=== PATIENT | female | born 1945 | race Two or more races ===

== ENCOUNTER 2020-05-24 09:23 | Outpatient (REF) | payer MEDICARE, SELFPAY ==
--- NOTE | 2020-05-24 | US_ITS ---
EXAMINATION: US EXTRACRANIAL CAROTID DUPLEX, BILATERAL CLINICAL INFORMATION: Bilateral carotid artery stenosis COMPARISON: Neck CTA October 2008 and carotid ultrasound September 2019 TECHNIQUE: Real-time ultrasound and Doppler techniques (integrating B-mode 2-D vascular images, Doppler spectral analysis and color-flow Doppler imaging) were utilized to interrogate the extracranial carotid arteries, the vertebral arteries and proximal subclavian arteries bilaterally. The degree of stenosis is determined by criteria similar to NASCET. FINDINGS: Right Side: 1. There is significant atherosclerotic plaque seen in the bifurcation/proximal ICA region. 2. The common carotid artery PSV proximally is 80 cm/s and distally 60 cm/s. 3. The proximal internal carotid artery velocities are 120 cm/s systolic and 28 cm/s diastolic. 4. The proximal external carotid artery PSV is 600 cm/s. 5. The vertebral artery shows antegrade flow. 6. The subclavian artery waveforms are normal. Left Side: 1. There is significant atherosclerotic plaque seen in the bifurcation/proximal ICA region. 2. The common carotid artery PSV proximally is 72 cm/s and distally 91 cm/s. 3. The proximal internal carotid artery velocities are 238 cm/s systolic and 54 cm/s diastolic. 4. The proximal external carotid artery PSV is 120 cm/s. 5. The vertebral artery shows antegrade flow. 6. The subclavian artery waveforms demonstrate increased activity systolic velocity of 225 cm/s suggestive of left subclavian stenosis.. There is right cervical lymphadenopathy that does not appear changed. IMPRESSION: 1. RIGHT: Significant calcified plaque. 0-49% right ICA stenosis. Severe right ECA stenosis. 2. LEFT: Significant calcified plaque. 50-79% left ICA stenosis. Left subclavian stenosis. 3. There is no change in the category severity of disease on the left when compared to the previous ultrasound study dated September 2019. There is change in the category severity of disease on the right when compared with previous ultrasound study dated September 2019. There is a no significant change compared to previous neck CTA October 2019 bilaterally.
== END 2020-05-24 09:24 | disposition home or self-care (01) ==
LOC: HO.US 09:23
PROVIDERS: Visit Provider Surgery Vascular Surgery
DX: I65.23 Occlusion and stenosis of bilateral carotid arteries (principal)
CPT/HCPCS: 93880

== ENCOUNTER → 2020-06-03 08:42 | Outpatient (BNVA) | payer MEDICARE, SELFPAY | PROVIDERS: PCP Internal Medicine; Visit Provider Surgery Vascular Surgery | DX: I65.22 Occlusion and stenosis of left carotid artery (principal) | CPT/HCPCS: 99213 ==

== ENCOUNTER → 2020-06-21 10:32 | Outpatient (BNVA) | payer MEDICARE, SELFPAY | PROVIDERS: PCP Internal Medicine; Referring Provider Internal Medicine; Visit Provider Internal Medicine | DX: I25.10 Atherosclerotic heart disease of native coronary artery without angina pectoris (principal); I65.23 Occlusion and stenosis of bilateral carotid arteries; D75.0 Familial erythrocytosis; E78.5 Hyperlipidemia, unspecified; Z95.5 Presence of coronary angioplasty implant and graft; Z88.0 Allergy status to penicillin; Z88.8 Allergy status to other drugs, medicaments and biological substances; Z79.82 Long term (current) use of aspirin; Z79.899 Other long term (current) drug therapy | CPT/HCPCS: 99212 ==

== ENCOUNTER → 2020-12-27 09:57 | Outpatient (BNVA) | payer MEDICARE, SELFPAY | PROVIDERS: PCP Internal Medicine; Visit Provider Internal Medicine | DX: I25.10 Atherosclerotic heart disease of native coronary artery without angina pectoris (principal); I10 Essential (primary) hypertension; I65.23 Occlusion and stenosis of bilateral carotid arteries; E78.5 Hyperlipidemia, unspecified; Z95.5 Presence of coronary angioplasty implant and graft | CPT/HCPCS: Q3014 ==

== ENCOUNTER 2021-05-22 13:51 | Outpatient (REF) | payer MEDICARE, SELFPAY ==
--- NOTE | ~2021-05-22 | US_ITS ---
EXAMINATION: US EXTRACRANIAL CAROTID DUPLEX, BILATERAL CLINICAL INFORMATION: Carotid artery stenosis. COMPARISON: Carotid ultrasound 05/24/2020. TECHNIQUE: Real-time ultrasound and Doppler techniques (integrating B-mode 2-D vascular images, Doppler spectral analysis and color-flow Doppler imaging) were utilized to interrogate the extracranial carotid arteries, the vertebral arteries and proximal subclavian arteries bilaterally. The degree of stenosis is determined by criteria similar to NASCET. FINDINGS: Right Side: 1. There is moderate atherosclerotic plaque seen in the bifurcation/proximal ICA region. 2. The common carotid artery PSV proximally is 74 cm/s and distally 56 cm/s. 3. The proximal internal carotid artery velocities are 136 cm/s systolic and 37 cm/s diastolic. 4. The proximal external carotid artery PSV is 398 cm/s. 5. The vertebral artery shows antegrade flow. 6. The subclavian artery waveforms are normal. Left Side: 1. There is moderate atherosclerotic plaque seen in the bifurcation/proximal ICA region. 2. The common carotid artery PSV proximally is 66 cm/s and distally 48 cm/s. 3. The proximal internal carotid artery velocities are 195 cm/s systolic and 56 cm/s diastolic. 4. The proximal external carotid artery PSV is 94 cm/s. 5. The vertebral artery shows antegrade flow. 6. The subclavian artery waveforms are normal. US/US carotid duplex BI IMPRESSION: 1. RIGHT: Moderate, hemodynamically significant stenosis of the proximal right internal carotid artery corresponding to a 50-79% stenosis by velocity criteria. 2. LEFT: Moderate, hemodynamically significant stenosis of the proximal left internal carotid artery corresponding to a 50-79% stenosis by velocity criteria. 3. Progression of disease from mild less than 50% stenosis to 50-79% stenosis on the right and stable disease on the left that 50-79% stenosis compared to 05/24/2020.
== END 2021-05-22 13:52 | disposition home or self-care (01) ==
LOC: HO.US 13:51
PROVIDERS: Visit Provider Surgery Vascular Surgery
DX: I65.23 Occlusion and stenosis of bilateral carotid arteries (principal)
CPT/HCPCS: 93880

== ENCOUNTER → 2021-06-01 14:34 | Outpatient (BNVA) | payer MEDICARE, SELFPAY | PROVIDERS: PCP Internal Medicine; Visit Provider Internal Medicine Cardiovascular Disease | DX: I25.10 Atherosclerotic heart disease of native coronary artery without angina pectoris (principal); I65.22 Occlusion and stenosis of left carotid artery | CPT/HCPCS: 99202 ==

== ENCOUNTER → 2021-06-13 13:41 | Outpatient (BNVA) | payer MEDICARE, SELFPAY | PROVIDERS: PCP Internal Medicine; Visit Provider Surgery Vascular Surgery | DX: I65.22 Occlusion and stenosis of left carotid artery (principal) | CPT/HCPCS: 99212 ==

== ENCOUNTER 2021-11-20 07:30 | Day surgery (SDC) | payer MEDICARE, SELFPAY ==
[2021-11-14 14:44] VITALS: BMI 30.1
--- NOTE | 2021-11-16 14:24 | MHC.SHP ---
Pre-Procedural Eval Section A Date of Service: 11/16/21 The patient is an INPATIENT: No Changes since office visit: No Cold of Flu in the past 2 weeks, No New Medical Problems, No Changes in Medication and No Patient answered all questions The History & Physical has been completed within 30 days and I have reviewed it.: Yes Section B Chief Complaint: Age-related nuclear cataract, right eye Allergies: Allergies Allergy/AdvReac Type Severity Reaction Status Date / Time ibuprofen [IBUPROFEN] Allergy Mild Nausea and Verified 11/16/21 08:23 Vomiting, Dizzy atorvastatin Allergy Unknown Diarrhea Verified 11/16/21 08:22 duloxetine Allergy Unknown Unknown Verified 11/14/21 14:40 meperidine [Demerol] Allergy Unknown Nausea and Verified 11/16/21 08:22 Vomiting penicillin V Allergy Unknown Does not Verified 11/16/21 08:22 work for her prednisone Allergy Unknown Rash Verified 11/16/21 08:22 Influenza Vac Split Quad Allergy Unknown Rash Uncoded 11/16/21 08:22 Levothroid Allergy Unknown chest Uncoded 11/16/21 08:23 pain, nausea, SOB MEDICATION FOR ARTHRITIS AdvReac Severe DIZZINESS Uncoded 06/13/21 13:50 Plan Diagnosis/Plan: Unchanged I have reviewed the history and physical and performed a pertinent physical examination on my patient. No changes have occurred unless specified.
--- NOTE | 2021-11-17 10:38 | P.CONAN_ITS ---
Documented by User: Cynthia Briceno NP 11/17/21 10:40 HPI - Anesthesia Eval Consult details Narrative: 75yo F for Right Cataract Extraction IOL Insertion PCP cleared No previous cataract on record [facility] Active Problems Active Problems: All Active Problems (Updated 11/16/21 @ 08:17 by Deidre Seymour, RN) Angina pectoris (Acute) Essential hypertension (Acute) Bilateral carotid artery stenosis (Acute) Other and unspecified hyperlipidemia (Acute) Presence of stent in left circumflex coronary artery (Acute) Atherosclerotic cardiovascular disease (Acute) Carotid stenosis, left (Acute) Past Medical History Medical History (Updated 11/16/21 @ 08:17 by Deidre Seymour, RN) Anxiety Asthma Atherosclerotic cardiovascular disease Bilateral carotid artery stenosis Carotid stenosis, left CKD (chronic kidney disease), stage IV Elevated cholesterol Essential hypertension Fibromyalgia Hypothyroid On beta [place] at home Osteoarthritis of lumbar spine Osteoporosis Other and unspecified hyperlipidemia Presence of stent in left circumflex coronary artery Type 2 diabetes mellitus Family History Family History Father No problems noted. Mother No problems noted. Surgical History Surgical History (Updated 11/16/21 @ 08:18 by Deidre Seymour RN) H/O section History of cardiac cath History of lumbar laminectomy Hx of cholecystectomy Social History Social History Are you a primary lawn care worker to a significant other at home: No Do you presently have visiting nurse or other home services: Yes (Homecare Services) Alcohol intake: never Patient Tobacco Use Status: Never used Tobacco Second Hand Smoke Exposure: No Use of substances other than those prescribed or required for medical reasons: No Have you been hit, kicked, punched, or otherwise hurt by someone within the past year? If so, by whom?: No Are you DNR?: No Advance Directives: No Advance Directives Information Provided: No Advance Directives on File: No Recently lost weight without trying: No Eating poorly because of decreased appetite: No Nutrition Risks: No Nutritional Risk Patient : No Meds Allergies Allergy/AdvReac Type Severity Reaction Status Date / Time ibuprofen [IBUPROFEN] Allergy Mild Nausea and Verified 11/16/21 08:23 Vomiting, Dizzy atorvastatin Allergy Unknown Diarrhea Verified 11/16/21 08:22 duloxetine Allergy Unknown Unknown Verified 11/14/21 14:40 meperidine [Demerol] Allergy Unknown Nausea and Verified 11/16/21 08:22 Vomiting penicillin V Allergy Unknown Does not Verified 11/16/21 08:22 work for her prednisone Allergy Unknown Rash Verified 11/16/21 08:22 Influenza Vac Split Quad Allergy Unknown Rash Uncoded 11/16/21 08:22 Levothroid Allergy Unknown chest Uncoded 11/16/21 08:23 pain, nausea, SOB MEDICATION FOR ARTHRITIS AdvReac Severe DIZZINESS Uncoded 06/13/21 13:50 Home Medications Medication Instructions Recorded Confirmed Last Taken Type albuterol sulfate 90 mcg/actuation INHALATION 06/03/20 06/01/21 Unknown History aerosol inhaler chlorthalidone 50 mg tablet 50 mg PO DAILY 06/03/20 11/14/21 Unknown History levothyroxine 50 mcg tablet 50 mcg PO DAILY 06/03/20 11/14/21 Unknown History metoprolol succinate 50 mg 50 mg PO DAILY 06/03/20 11/14/21 Unknown History tablet,extended release 24 hr omeprazole 20 mg capsule,delayed 20 mg PO DAILY 06/03/20 11/14/21 Unknown History release alprazolam 0.25 mg tablet 0.25 mg PO BEDTIME PRN 06/21/20 11/14/21 Unknown Histo ry aspirin 81 mg tablet,delayed 81 mg PO DAILY 06/21/20 11/14/21 Unknown History release amlodipine 5 mg tablet 1 tab PO DAILY 11/14/21 11/14/21 Unknown History empagliflozin 10 mg tablet 1 tab PO DAILY 11/14/21 11/14/21 Unknown History (Jardiance) fluticasone propionate 110 2 puff INHALATION BID 11/14/21 11/14/21 Unknown History mcg/actuation HFA aerosol inhaler (Flovent HFA) Exam Exam Date and Time: November 17, 2021 1038 Height,Weight and Vital Signs: Height 5 ft 3 in Weight 77.111 kg Narrative Narrative: EKG 11/15/21 NSR @ 69 borderline low volt Assessment and Plan Assessment Anesthesia Assessment: Chart Reviewed Documented by User: Adan Shin MD 11/20/21 08:59 [facility] Past Medical History Medical History (Updated 11/16/21 @ 08:17 by Deidre Seymour, RN) Anxiety Asthma Atherosclerotic cardiovascular disease Bilateral carotid artery stenosis Carotid stenosis, left CKD (chronic kidney disease), stage IV Elevated cholesterol Essential hypertension Fibromyalgia Hypothyroid On beta [place] at home Osteoarthritis of lumbar spine Osteoporosis Other and unspecified hyperlipidemia Presence of stent in left circumflex coronary artery Type 2 diabetes mellitus Family History Family History Father No problems noted. Mother No problems noted. Family history of problems with anesthesia: No Surgical History Surgical History (Updated 11/16/21 @ 08:18 by Deidre Seymour, RN) H/O section History of cardiac cath History of lumbar laminectomy Hx of cholecystectomy History of Problems with Anesthesia: No Social History Social History Are you a primary lawn care worker to a significant other at home: No Do you presently have visiting nurse or other home services: Yes (Homecare Services) Alcohol intake: never Patient Tobacco Use Status: Never used Tobacco Second Hand Smoke Exposure: No Use of substances other than those prescribed or required for medical reasons: No Have you been hit, kicked, punched, or otherwise hurt by someone within the past year? If so, by whom?: No Are you DNR?: No Advance Directives: No Advance Directives Information Provided: No Advance Directives on File: No Recently lost weight without trying: No Eating poorly because of decreased appetite: No Nutrition Risks: No Nutritional Risk Patient : No Meds Allergies Allergy/AdvReac Type Severity Reaction Status Date / Time ibuprofen [IBUPROFEN] Allergy Mild Nausea and Verified 11/16/21 08:23 Vomiting, Dizzy atorvastatin Allergy Unknown Diarrhea Verified 11/16/21 08:22 duloxetine Allergy Unknown Unknown Verified 11/14/21 14:40 meperidine [Demerol] Allergy Unknown Nausea and Verified 11/16/21 08:22 Vomiting penicillin V Allergy Unknown Does not Verified 11/16/21 08:22 work for her prednisone Allergy Unknown Rash Verified 11/16/21 08:22 Influenza Vac Split Quad Allergy Unknown Rash Uncoded 11/16/21 08:22 Levothroid Allergy Unknown chest Uncoded 11/16/21 08:23 pain, nausea, SOB MEDICATION FOR ARTHRITIS AdvReac Severe DIZZINESS Uncoded 06/13/21 13:50 Home Medications Medication Instructions Recorded Confirmed Last Taken Type albuterol sulfate 90 mcg/actuation INHALATION 06/03/20 06/01/21 Unknown History aerosol inhaler chlorthalidone 50 mg tablet 50 mg PO DAILY 06/03/20 11/14/21 Unknown History levothyroxine 50 mcg tablet 50 mcg PO DAILY 06/03/20 11/14/21 Unknown History metoprolol succinate 50 mg 50 mg PO DAILY 06/03/20 11/14/21 Unknown History tablet,extended release 24 hr omeprazole 20 mg capsule,delayed 20 mg PO DAILY 06/03/20 11/14/21 Unknown History release alprazolam 0.25 mg tablet 0.25 mg PO BEDTIME PRN 06/21/20 11/14/21 Unknown History aspirin 81 mg tablet,delayed 81 mg PO DAILY 06/21/20 11/14/21 Unknown History release amlodipine 5 mg tablet 1 tab PO DAILY 11/14/21 11/14/21 Unknown History empagliflozin 10 mg tablet 1 tab PO DAILY 11/14/21 11/14/21 Unknown History (Jardiance) fluticasone propionate 110 2 puff INHALATION BID 11/14/21 11/14/21 Unknown History mcg/actuation HFA aerosol inhaler (Flovent HFA) Exam Airway Mallampati Class: II TM Dist: >3cm Neck ROM: Full Denture: Upper and Lower Loose/Missing/Broken Teeth: Yes Heart: [id number] Lungs: cta b/l Assessment and Plan Assessment Anesthesia Assessment: Anesthesia Plan Discussed Final Anesthetic Review Family History of Problems with Anesthesia: No History of Problems with Anesthesia: No NPO: Yes ASA Class: III Final Preanesthetic Review: No Changes in Pt Med Stat, Meds/Allgs Chart Reviewed, Consent Obtained/Reviewed and Anes Risks/Benef Reviewed Patient Risk: Intermediate Procedure Risk: Low Assessment/Block/Sedation in SS: Assess/Block/Sedation-SS Anesthetic Plan Anesthetic Plan: MAC: and Agree w/ Assess. and Plan Disposition: Standard PACU
[2021-11-20 08:38] VITALS: BP 128/72; PULSE 67; RESP 16; TEMP 36.6; O2SAT 96
[2021-11-20 08:40] LABS: Glucose, Whole Blood 99 mg/dL (60-115)
[2021-11-20] MEDS: Tetracaine HCl/PF 0.5% Oph Sol 4 ML DROPS 1 DROP EYE-RIGHT (08:44)
[2021-11-20] MEDS: Tropicamide 1 % Ophth Sol 3 ML BTL 1 DROP EYE-RIGHT ×3 (08:47→08:54)
[2021-11-20] MEDS: Phenylephrine HCL 2.5% Oph SoL 2 ML BOTTLE 1 DROP EYE-RIGHT ×3 (08:49→08:56)
[2021-11-20] MEDS: Lactated Ringers 500 ML 50 ML IV (08:57)
--- NOTE | 2021-11-20 09:49 | HO.PNOPHT ---
Ophthalmology Procedure Procedure Date of Service: 11/20/21 Ophthalmology Viscoelastic: Healon Duet Dual Pack Pro Ophthalmology Lenses: SENSAR AR40 (AR40M 1) Procedure Notes: PREOPERATIVE DIAGNOSIS: Decreased visual acuity right eye secondary to cataract POSTOPERATIVE DIAGNOSIS: Same PROCEDURE: Right cataract extraction with intraocular lens insertion SURGEON: Norm Lobo M.D. ANESTHESIA: Topical/MAC ESTIMATED BLOOD LOSS: None COMPLICATIONS: None After obtaining informed consent, the patient was brought to the operating room suite and placed in the supine position. After adequate sedation per anesthesia, topical drops of Tetracaine were given to the right eye. The eye was then prepped and draped in the usual sterile fashion. The operating room microscope was then positioned over the operative eye and a lid speculum placed. A paracentesis was created. Viscoelastic was then instilled into the anterior chamber. A three plane incision was then created temporally, utilizing a 2.85 mm keratome. Capsulotomy forceps were then utilized to create a circular tear capsulotomy. Hydrodissection and hydrodelineation were carried out until adequate mobilization of the nucleus occurred. Phacoemulsification was then utilized to remove the dense central nucleus followed by removal of the cortical material utilizing the automated aspiration irrigation unit. Viscoelastic was instilled into the posterior capsular bag followed by placement of a posterior chamber intraocular lens without difficulty. The residual Viscoelastic was then removed utilizing the automated IA machine. The wound was checked and found to be watertight. The patient tolerated the procedure well and the lid speculum was removed. Intracameral injection of Vigamox 0.1 mL followed by a subtenon injection of Kenalog-40 0.2 mL were administered. The patient will be seen in the a.m.
[2021-11-20] MEDS: Acetaminophen 325 MG TABLET 650 MG PO (10:17)
[2021-11-20 10:18] VITALS: BP 142/69; PULSE 71; RESP 18; TEMP 36.2; O2SAT 97
== END 2021-11-20 10:20 ==
LOC: HO.SSS 07:31
PROVIDERS: PCP Internal Medicine; Visit Provider Ophthalmology
PROC: (CPT 66985; principal; 2021-11-20 10:00)
DX: H25.11 Age-related nuclear cataract, right eye (principal); H52.4 Presbyopia; H53.001 Unspecified amblyopia, right eye; H35.09 Other intraretinal microvascular abnormalities; E11.59 Type 2 diabetes mellitus with other circulatory complications; E11.22 Type 2 diabetes mellitus with diabetic chronic kidney disease; I12.9 Hypertensive chronic kidney disease with stage 1 through stage 4 chronic kidney disease, or unspecified chronic kidney disease; N18.4 Chronic kidney disease, stage 4 (severe); Z79.84 Long term (current) use of oral hypoglycemic drugs; E03.9 Hypothyroidism, unspecified; M79.7 Fibromyalgia; M81.0 Age-related osteoporosis without current pathological fracture; E78.00 Pure hypercholesterolemia, unspecified; J45.20 Mild intermittent asthma, uncomplicated; Z79.51 Long term (current) use of inhaled steroids; Z79.899 Other long term (current) drug therapy; Z88.0 Allergy status to penicillin; Z88.8 Allergy status to other drugs, medicaments and biological substances
CPT/HCPCS: 66984; 82947; J2250; J3010; J3300; V2632

== ENCOUNTER → 2021-11-30 14:05 | Outpatient (BNVA) | payer MEDICARE, SELFPAY | PROVIDERS: PCP Internal Medicine; Referring Provider Internal Medicine; Visit Provider Internal Medicine Cardiovascular Disease | DX: I10 Essential (primary) hypertension (principal); I25.10 Atherosclerotic heart disease of native coronary artery without angina pectoris; I65.23 Occlusion and stenosis of bilateral carotid arteries; Z79.899 Other long term (current) drug therapy | CPT/HCPCS: 93005; 99212 ==

== ENCOUNTER 2021-12-11 06:50 | Day surgery (SDC) | payer MEDICARE, SELFPAY ==
[2021-11-14 14:55] VITALS: BMI 30.1
--- NOTE | 2021-12-08 07:57 | MHC.SHP ---
Pre-Procedural Eval Section A Date of Service: 12/08/21 The patient is an INPATIENT: No Changes since office visit: No Cold of Flu in the past 2 weeks, No New Medical Problems, No Changes in Medication and No Patient answered all questions The History & Physical has been completed within 30 days and I have reviewed it.: Yes Section B Chief Complaint: Age-related nuclear cataract, left eye Allergies: Allergies Allergy/AdvReac Type Severity Reaction Status Date / Time ibuprofen [IBUPROFEN] Allergy Mild Nausea and Verified 11/30/21 14:08 Vomiting, Dizzy atorvastatin Allergy Unknown Diarrhea Verified 11/30/21 14:08 duloxetine Allergy Unknown Unknown Verified 11/30/21 14:08 meperidine [Demerol] Allergy Unknown Nausea and Verified 11/30/21 14:08 Vomiting penicillin V Allergy Unknown Does not Verified 11/30/21 14:08 work for her prednisone Allergy Unknown Rash Verified 11/30/21 14:08 Influenza Vac Split Quad Allergy Unknown Rash Uncoded 11/30/21 14:08 Levothroid Allergy Unknown chest Uncoded 11/30/21 14:08 pain, nausea, SOB MEDICATION FOR ARTHRITIS AdvReac Severe DIZZINESS Uncoded 11/30/21 14:08 Plan Diagnosis/Plan: Unchanged I have reviewed the history and physical and performed a pertinent physical examination on my patient. No changes have occurred unless specified.
[2021-12-11 07:59] LABS: Glucose, Whole Blood 118 mg/dL (60-115)
--- NOTE | 2021-12-11 08:03 | HO.ANESPROP2 ---
HPI - Anesthesia Eval Consult details Narrative: left eye cataract PMFSH Active Problems Active Problems: All Active Problems (Updated 11/16/21 @ 08:17 by Deidre Seymour RN) Angina pectoris (Acute) Essential hypertension (Acute) Bilateral carotid artery stenosis (Acute) Other and unspecified hyperlipidemia (Acute) Presence of stent in left circumflex coronary artery (Acute) Atherosclerotic cardiovascular disease (Acute) Carotid stenosis, left (Acute) Past Medical History Medical History (Updated 11/16/21 @ 08:17 by Deidre Seymour RN) Anxiety Asthma Atherosclerotic cardiovascular disease Bilateral carotid artery stenosis Carotid stenosis, left CKD (chronic kidney disease), stage IV Elevated cholesterol Essential hypertension Fibromyalgia Hypothyroid On beta [place] at home Osteoarthritis of lumbar spine Osteoporosis Other and unspecified hyperlipidemia Presence of stent in left circumflex coronary artery Type 2 diabetes mellitus Family History Family History Father No problems noted. Mother No problems noted. Family history of problems with anesthesia: No Surgical History Surgical History H/O section History of cardiac cath History of lumbar laminectomy Hx of cholecystectomy History of Problems with Anesthesia: No Social History Social History Are you a primary career technical supervisor to a significant other at home: No Do you presently have visiting nurse or other home services: Yes (Homecare Services) Alcohol intake: never Patient Tobacco Use Status: Never used Tobacco Second Hand Smoke Exposure: No Use of substances other than those prescribed or required for medical reasons: No Have you been hit, kicked, punched, or otherwise hurt by someone within the past year? If so, by whom?: No Are you DNR?: No Advance Directives: No Advance Directives Information Provided: Yes Advance Directives on File: No Recently lost weight without trying: No Eating poorly because of decreased appetite: No Nutrition Risks: No Nutritional Risk Patient : No Meds Allergies Allergy/AdvReac Type Severity Reaction Status Date / Time ibuprofen [IBUPROFEN] Allergy Mild Nausea and Verified 11/30/21 14:08 Vomiting, Dizzy atorvastatin Allergy Unknown Diarrhea Verified 11/30/21 14:08 duloxetine Allergy Unknown Unknown Verified 11/30/21 14:08 meperidine [Demerol] Allergy Unknown Nausea and Verified 11/30/21 14:08 Vomiting penicillin V Allergy Unknown Does not Verified 11/30/21 14:08 work for her prednisone Allergy Unknown Rash Verified 11/30/21 14:08 Influenza Vac Split Quad Allergy Unknown Rash Uncoded 11/30/21 14:08 Levothroid Allergy Unknown chest Uncoded 11/30/21 14:08 pain, nausea, SOB MEDICATION FOR ARTHRITIS AdvReac Severe DIZZINESS Uncoded 11/30/21 14:08 Active Medications: Current Medications Lactated Ringer's (Lr) 500 mls @ 50 mls/hr IVCONT .Q10H CIELO Povidone Iodine (Povidone Iodine 5 % Ophth Soln 30 Ml Bottle) 1 appl EYE-LEFT PREOP PRN PRN Reason: Pre-Op Surgical Implant Prophy Home Medications Medication Instructions Recorded Confirmed Last Taken Type albuterol sulfate 90 mcg/actuation INHALATION 06/03/20 11/30/21 Unknown History aerosol inhaler chlorthalidone 50 mg tablet 50 mg PO DAILY 06/03/20 11/30/21 Unknown History levothyroxine 50 mcg tablet 50 mcg PO DAILY 06/03/20 11/30/21 Unknown History metoprolol succinate 50 mg 50 mg PO DAILY 06/03/20 11/30/21 Unknown History tablet,extended release 24 hr omeprazole 20 mg capsule,delayed 20 mg PO DAILY 06/03/20 11/30/21 Unknown History release alprazolam 0.25 mg tablet 0.25 mg PO BEDTIME PRN 06/21/20 11/30/21 Unknown History aspirin 81 mg tablet,delayed 81 mg PO DAILY 06/21/20 11/30/21 Unknown History release empagliflozin 10 mg tablet 1 tab PO DAILY 11/14/21 11/30/21 Unknown History (Jardiance) fluticasone propionate 110 2 puff INHALATION BID 11/14/21 11/30/21 Unknown History mcg/actuation HFA aerosol inhaler (Flovent HFA) Exam Exam Date and Time: December 11, 2021 0803 Height,Weight and Vital Signs: Height 5 ft 3 in Weight 77.111 kg Pertinent Lab Results Pertinent Lab Results: Laboratory Tests 12/11/21 07:55 POC Glucose 118 H Airway Mallampati Class: II TM Dist: >3cm Neck ROM: Full Denture: Upper and Lower Loose/Missing/Broken Teeth: Yes Heart: rrr+s1s2 Lungs: cta b/l Assessment and Plan Final Anesthetic Review Family History of Problems with Anesthesia: No History of Problems with Anesthesia: No NPO: Yes ASA Class: III Final Preanesthetic Review: No Changes in Pt Med Stat, Meds/Allgs Chart Reviewed, Consent Obtained/Reviewed and Anes Risks/Benef Reviewed Patient Risk: Intermediate Procedure Risk: Low Assessment/Block/Sedation in SS: Assess/Block/Sedation-SS Anesthetic Plan Anesthetic Plan: MAC: and Agree w/ Assess. and Plan Disposition: Standard PACU
[2021-12-11] MEDS: Tetracaine HCl/PF 0.5% Oph Sol 4 ML DROPS 1 DROP EYE-LEFT (08:12)
[2021-12-11] MEDS: Tropicamide 1 % Ophth Sol 3 ML BTL 1 DROP EYE-LEFT ×3 (08:12→08:20)
[2021-12-11] MEDS: Phenylephrine HCL 2.5% Oph SoL 2 ML BOTTLE 1 DROP EYE-LEFT ×3 (08:13→08:21)
--- NOTE | 2021-12-11 08:35 | HO.PNOPHT ---
Ophthalmology Procedure Procedure Date of Service: 12/11/21 Ophthalmology Viscoelastic: Healdavid Bellot Dual Pack Pro Ophthalmology Lenses: TECBENEDICT [id number] (22) Procedure Notes: PREOPERATIVE DIAGNOSIS: Decreased visual acuity left eye secondary to cataract POSTOPERATIVE DIAGNOSIS: Same PROCEDURE: Left cataract extraction with intraocular lens insertion SURGEON: Norm Lobo M.D. ANESTHESIA: Topical/MAC ESTIMATED BLOOD LOSS: None COMPLICATIONS: None After obtaining informed consent, the patient was brought to the operation room suite and placed in the supine position. After adequate sedation per anesthesia, topical drops of Tetracaine were given to the left eye. The eye was then prepped and draped in the usual sterile fashion. The operating room microscope was then positioned over the operative eye and a lid speculum placed. A paracentesis was created. Viscoelastic was then instilled into the anterior chamber. A three plane incision was then created temporally, utilizing a 2.85 mm keratome. Capsulotomy forceps were then utilized to create a circular tear capsulotomy. Hydrodissection and hydrodelineation were carried out until adequate mobilization of the nucleus occurred. Phacoemulsification was then utilized to remove the dense central nucleus followed by removal of the cortical material utilizing the automated aspiration irrigation unit. Viscoat elastic was instilled into the posterior capsular bag followed by placement of a posterior chamber intraocular lens without difficulty. The residual Viscoat elastic was then removed utilizing the automated IA machine. The wound was check and found to be watertight. The patient tolerated the procedure well and the lid speculum was removed. Intracameral injection of Vigamox 0.1 mL followed by a subtenon injection of Kenalog-40 0.2 mL were administered. The patient will be seen in the a.m.
[2021-12-11 08:57] VITALS: BP 127/50; PULSE 69; RESP 16; TEMP 36.6; O2SAT 96
== END 2021-12-11 09:12 | disposition home or self-care (01) ==
PROVIDERS: PCP Internal Medicine; Visit Provider Ophthalmology
PROC: (CPT 66985; principal; 2021-12-11 08:40)
DX: H25.12 Age-related nuclear cataract, left eye (principal); H52.4 Presbyopia; M79.7 Fibromyalgia; M81.0 Age-related osteoporosis without current pathological fracture; J45.20 Mild intermittent asthma, uncomplicated; E78.00 Pure hypercholesterolemia, unspecified; I65.23 Occlusion and stenosis of bilateral carotid arteries; I25.10 Atherosclerotic heart disease of native coronary artery without angina pectoris; E03.9 Hypothyroidism, unspecified; E11.59 Type 2 diabetes mellitus with other circulatory complications; E11.22 Type 2 diabetes mellitus with diabetic chronic kidney disease; I12.9 Hypertensive chronic kidney disease with stage 1 through stage 4 chronic kidney disease, or unspecified chronic kidney disease; N18.4 Chronic kidney disease, stage 4 (severe); Z79.84 Long term (current) use of oral hypoglycemic drugs; Z79.51 Long term (current) use of inhaled steroids; Z79.899 Other long term (current) drug therapy; Z88.0 Allergy status to penicillin; Z88.8 Allergy status to other drugs, medicaments and biological substances
CPT/HCPCS: 66984; 82947; J2250; J3010; J3300; V2632

== ENCOUNTER 2022-06-04 12:44 | Outpatient (REF) | payer MEDICARE, SELFPAY ==
--- NOTE | ~2022-06-04 | US_ITS ---
EXAMINATION: US EXTRACRANIAL CAROTID DUPLEX, BILATERAL CLINICAL INFORMATION: Carotid stenosis COMPARISON: 05/24/2020 and 05/22/2021 TECHNIQUE: Real-time ultrasound and Doppler techniques (integrating B-mode 2-D vascular images, Doppler spectral analysis and color-flow Doppler imaging) were utilized to interrogate the extracranial carotid arteries, the vertebral arteries and proximal subclavian arteries bilaterally. The degree of stenosis is determined by criteria similar to NASCET. FINDINGS: Right Side: 1. There is mild to moderate atherosclerotic plaque seen in the bifurcation/proximal ICA region. 2. The common carotid artery PSV proximally is 63 cm/s and distally 58 cm/s. 3. The proximal internal carotid artery velocities are 127 cm/s systolic and 30 cm/s diastolic. 4. The proximal external carotid artery PSV is 543 cm/s. 5. The vertebral artery shows antegrade flow. 6. The subclavian artery waveforms are normal. Left Side: 1. There is moderate atherosclerotic plaque seen in the bifurcation/proximal ICA region. 2. The common carotid artery PSV proximally is 70 cm/s and distally 65 cm/s. 3. The proximal internal carotid artery velocities are 291 cm/s systolic and 68 cm/s diastolic. 4. The proximal external carotid artery PSV is 159 cm/s. 5. The vertebral artery shows antegrade flow. 6. The subclavian artery waveforms are normal. US/US carotid duplex BI IMPRESSION: 1. RIGHT: Moderate, hemodynamically significant stenosis of the proximal right internal carotid artery corresponding to a 50-79% stenosis by velocity criteria. There is severe stenosis of the external iliac artery which is grossly unchanged 2. LEFT: Moderate, hemodynamically significant stenosis of the proximal left internal carotid artery corresponding to a 50-79% stenosis by velocity criteria. 3. There is no change in the category severity of disease when compared to the previous study dated 05/22/2021.
== END 2022-06-04 12:45 | disposition home or self-care (01) ==
LOC: HO.US 12:44
PROVIDERS: Visit Provider Surgery Vascular Surgery
DX: I65.22 Occlusion and stenosis of left carotid artery (principal)
CPT/HCPCS: 93880

== ENCOUNTER → 2022-07-30 15:33 | Outpatient (BNVA) | payer MEDICARE, SELFPAY | PROVIDERS: PCP Internal Medicine; Referring Provider Internal Medicine; Visit Provider Internal Medicine Cardiovascular Disease | DX: I10 Essential (primary) hypertension (principal); I20.8 Other forms of angina pectoris; Z79.899 Other long term (current) drug therapy | CPT/HCPCS: 93005; 99212 ==

== ENCOUNTER → 2022-09-13 15:42 | Outpatient (BNVA) | payer MEDICARE, SELFPAY | PROVIDERS: PCP Internal Medicine; Visit Provider Surgery Vascular Surgery | DX: I65.23 Occlusion and stenosis of bilateral carotid arteries (principal) | CPT/HCPCS: 99212 ==

== ENCOUNTER 2023-08-05 15:16 | Outpatient (AMB) | payer MEDICARE, SELFPAY ==
[2023-08-05 15:34] VITALS: BP 130/62; PULSE 73; BMI 30.7
--- NOTE | 2023-08-05 15:34 | MHC.OFFVIS ---
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 Required: No Accompanied by: Self / Same As Patient Allergies ibuprofen [IBUPROFEN] Allergy (Mild, Verified 09/13/22 15:47) Nausea and Vomiting, Dizzy atorvastatin Allergy (Unknown, Verified 09/13/22 15:47) Diarrhea duloxetine Allergy (Unknown, Verified 09/13/22 15:47) Unknown meperidine [Demerol] Allergy (Unknown, Verified 09/13/22 15:47) Nausea and Vomiting penicillin V Allergy (Unknown, Verified 09/13/22 15:47) Does not work for her prednisone Allergy (Unknown, Verified 09/13/22 15:47) Rash Influenza Vac Split Quad Allergy (Unknown, Uncoded 07/30/22 15:54) Rash Levothroid Allergy (Unknown, Uncoded 07/30/22 15:54) chest pain, nausea, SOB MEDICATION FOR ARTHRITIS Adverse Reaction (Severe, Uncoded 07/30/22 15:54) DIZZINESS Medication List - Last Reconciled 08/05/23 by Christiano Randolph MD albuterol sulfate 90 mcg/actuation inhalation amlodipine 5 mg PO BID aspirin 81 mg PO DAILY empagliflozin (Jardiance) 1 tab PO DAILY fluticasone propionate 110 mcg/actuation (Flovent HFA) 2 puffs inhalation BID levothyroxine 50 mcg PO DAILY losartan 25 mg PO DAILY metoprolol succinate ER 100 mg PO DAILY nitroglycerin 0.4 mg sublingual Q5M PRN omeprazole 20 mg PO DAILY rosuvastatin 20 mg PO DAILY HPI HPI Comments History of Present Illness Details 77-year-old female here for follow-up She has history of coronary disease with previous circumflex PCI. She has no chest discomfort or shortness of breath. She is compliant with medications. Denying any side effects from medications. She has history of carotid stenosis. She brought her home blood pressure readings and they are stable. She is taking medications regularly. No side effects from medications. 08/05/2023: She returns for follow-up. Blood pressure control is good. 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 She also was changed from simvastatin to rosuvastatin 20 mg daily. She is asking for script. [facility] Medical History Anxiety Asthma Atherosclerotic cardiovascular disease Bilateral carotid artery stenosis Carotid stenosis, left CKD (chronic kidney disease), stage IV Elevated cholesterol Essential hypertension Fibromyalgia Hypothyroid On beta [place] at home Osteoarthritis of lumbar spine Osteoporosis Other and unspecified hyperlipidemia Presence of stent in left circumflex coronary artery Type 2 diabetes mellitus Surgical History History of lumbar laminectomy Hx of cholecystectomy H/O section History of cardiac cath Family History Father No problems noted. Mother No problems noted. Social History Are you a primary special needs caregiver to a significant other at home: No Do you presently have visiting nurse or other home services: Yes (Homecare Services) Alcohol intake: never Patient Tobacco Use Status: Never used Tobacco Second Hand Smoke Exposure: No Review of Systems Const Reports chills, Reports fatigue, Reports fever(s), Reports frequent falls, Reports weakness, Reports weight gain and Reports weight loss ENT Reports dizziness Card Reports chest pain, Reports leg edema, Reports lightheadedness, Reports palpitations, Reports dyspnea and Reports dyspnea on exertion Resp Reports cough, Reports dyspnea and Reports dyspnea on exertion GI Reports hematochezia Musc Reports abnormal gait, Reports muscle weakness, Reports numbness, Reports radiating pain into limb and Reports tingling Neuro Reports abnormal gait, Reports dizziness, Reports frequent falls, Reports numbness, Reports tingling and Reports weakness Endo Reports fatigue and Reports palpitations Physical Exam Vital Signs: Last Vital Signs Pulse 73 08/05/23 15:34 BP 130/62 08/05/23 15:34 BMI result Body Mass Index 30.7 GENERAL APPEARANCE: in no acute distress, pleasant. NECK: no carotid bruit, no jugular venous distention. SKIN: no suspicious lesions, warm and dry. HEART: no murmurs, regular rate and rhythm. LUNGS: clear to auscultation bilaterally. ABDOMEN: soft, nontender. EXTREMITIES: no edema. PERIPHERAL PULSES: equal. NEUROLOGIC: No gross deficits, AAO X 3 Office Procedures EKG Details: Sinus rhythm 73 beats per minute, normal axis, normal ECG, QTC 423 milliseconds. [id number], Complete Assessment & Plan Assessment & Plan (1) Stable angina: Code(s): I20.8 - Other forms of angina pectoris (2) Essential hypertension: Code(s): I10 - Essential (primary) hypertension Plan Pleasant 77 year female with stable angina. Blood pressure control is good. She started rosuvastatin instead of simvastatin. We will send a script for her. Follow-up with us in 6 months. Clinically stable. Thank you for allowing me to participate in the care of your patient. Please feel free to contact me if you have any questions. Medications: Refilled rosuvastatin 20 mg PO DAILY 90 tabs 3RF I20.8 - Other forms of angina pectoris Coding Level of Care Code Est Pt Level 3 (02189) Diagnoses Stable angina I20.8 Essential hypertension I10 CPT Codes EKG - CPT: 75882-[id number], Complete ([id number])
== END 2023-08-05 15:56 | disposition home or self-care (01) ==
PROVIDERS: Visit Provider Internal Medicine Cardiovascular Disease
DX: I20.8 Other forms of angina pectoris (principal); I10 Essential (primary) hypertension
CPT/HCPCS: 93010; 99213

== ENCOUNTER → 2023-08-05 15:16 | Outpatient (BNVA) | payer MEDICARE, SELFPAY | PROVIDERS: Visit Provider Internal Medicine Cardiovascular Disease | DX: I20.89 Other forms of angina pectoris (principal); I10 Essential (primary) hypertension | CPT/HCPCS: 93005; 99212 ==

== ENCOUNTER 2023-09-18 13:49 | Outpatient (REF) | payer MEDICARE, SELFPAY ==
--- NOTE | ~2023-09-18 | US_ITS ---
EXAMINATION: US EXTRACRANIAL CAROTID DUPLEX, BILATERAL CLINICAL INFORMATION: Carotid stenosis. COMPARISON: Carotid ultrasound 05/22/2021. TECHNIQUE: Real-time ultrasound and Doppler techniques (integrating B-mode 2-D vascular images, Doppler spectral analysis and color-flow Doppler imaging) were utilized to interrogate the extracranial carotid arteries, the vertebral arteries and proximal subclavian arteries bilaterally. The degree of stenosis is determined by criteria similar to NASCET. FINDINGS: Right Side: 1. There is moderate atherosclerotic plaque seen in the bifurcation/proximal ICA region. 2. The common carotid artery PSV proximally is 71 cm/s and distally 62 cm/s. 3. The proximal internal carotid artery velocities are 91 cm/s systolic and 20 cm/s diastolic. The mid and distal segments are not seen due to deep tortuous vessels. 4. The proximal external carotid artery PSV is 34 cm/s. 5. The vertebral artery shows antegrade flow. 6. The subclavian artery waveforms are normal. Left Side: 1. There is moderate atherosclerotic plaque seen in the bifurcation/proximal ICA region. 2. The common carotid artery PSV proximally is 69 cm/s and distally 57 cm/s. 3. The proximal internal carotid artery velocities are 203 cm/s systolic and 48 cm/s diastolic. 4. The proximal external carotid artery PSV is 174 cm/s. 5. The vertebral artery shows antegrade flow. 6. The subclavian artery waveforms are normal. US/US carotid duplex BI IMPRESSION: 1. RIGHT: Minimal, non-hemodynamically significant stenosis of the proximal right internal carotid artery corresponding to a 0-49% stenosis by velocity criteria. 2. LEFT: Moderate, hemodynamically significant stenosis of the proximal left internal carotid artery corresponding to a 50-79% stenosis by velocity criteria. 3. Disease category is improved on the right by velocity criteria, which may be technique related. Disease category is stable on the left.
== END 2023-09-18 13:50 | disposition home or self-care (01) ==
LOC: HO.US 13:49
PROVIDERS: Visit Provider Surgery Vascular Surgery
DX: I65.23 Occlusion and stenosis of bilateral carotid arteries (principal)
CPT/HCPCS: 93880

== ENCOUNTER 2023-10-10 14:10 | Outpatient (AMB) | payer MEDICARE, SELFPAY ==
[2023-10-10 14:12] VITALS: BP 135/80; BMI 30.6
--- NOTE | 2023-10-10 14:12 | MHC.OFFVIS ---
Intake Vital Signs 10/10/23 14:12 Height 5 ft 3 in Weight 173 lb BMI 30.6 BP 135/80 Blood Pressure Location Lt brachial Position Sitting Intake Visit Reasons: 1 yr follow up s/p carotid US scheduled 09/18/2023 Intake Note: 1 yr follow up carotid stenosis s/p carotid US . No complaints Accompanied by: Self / Same As Patient Allergies ibuprofen [IBUPROFEN] Allergy (Mild, Verified 10/10/23 14:19) Nausea and Vomiting, Dizzy atorvastatin Allergy (Unknown, Verified 10/10/23 14:19) Diarrhea duloxetine Allergy (Unknown, Verified 10/10/23 14:19) Unknown meperidine [Demerol] Allergy (Unknown, Verified 10/10/23 14:19) Nausea and Vomiting penicillin V Allergy (Unknown, Verified 10/10/23 14:19) Does not work for her prednisone Allergy (Unknown, Verified 10/10/23 14:19) Rash Influenza Vac Split Quad Allergy (Unknown, Uncoded 10/10/23 14:19) Rash Levothroid Allergy (Unknown, Uncoded 10/10/23 14:19) chest pain, nausea, SOB MEDICATION FOR ARTHRITIS Adverse Reaction (Severe, Uncoded 10/10/23 14:19) DIZZINESS HPI 1 yr follow up s/p carotid US scheduled 09/18/2023 HPI Details Very pleasant 77-year-old female presents for annual surveillance regarding carotids. She has had no interval issues. She reports a good regimen of diet and exercise. She denies any lateralizing signs or symptoms visual disturbances or speech disturbances. Now presents for follow-up with surveillance ultrasound. [facility] Medical History Osteoarthritis of lumbar spine Hypothyroid Asthma Elevated cholesterol Anxiety CKD (chronic kidney disease), stage IV Type 2 diabetes mellitus Osteoporosis Fibromyalgia On beta [place] at home Essential hypertension Bilateral carotid artery stenosis Other and unspecified hyperlipidemia Presence of stent in left circumflex coronary artery Atherosclerotic cardiovascular disease Carotid stenosis, left Surgical History History of lumbar laminectomy Hx of cholecystectomy H/O section History of cardiac cath Family History Father No problems noted. Mother No problems noted. Social History Are you a primary animal care attendant to a significant other at home: No Do you presently have visiting nurse or other home services: Yes (Homecare Services) Alcohol intake: never Patient Tobacco Use Status: Never used Tobacco Second Hand Smoke Exposure: No Review of Systems Const All systems reviewed & are unremarkable except as noted in HPI and below Reports no additional complaints ENT Reports Normal hearing present Card Denies chest pain, Denies chest pain at rest, Denies chest pain with activity and Denies pedal edema Resp Denies cough GI Denies abdominal pain Musc Denies abnormal gait, Denies muscle cramps and Denies radiating pain into limb Skin/Breast Denies skin ulcer and Denies wounds Neuro Reports Normal hearing present and Denies abnormal gait Psych Reports no additional complaints Physical Exam Vital Signs: Last Vital Signs BP 135/80 10/10/23 14:12 BMI result Body Mass Index 30.6 Const General: cooperative, healthy appearing and comfortable Orientation/consciousness: oriented to person, oriented to place and oriented to time HEENT Head: Yes normal to inspection Neck Neck: Yes normal visual inspection Carotids: no bruits Chest Chest palpation & inspection: normal inspection of the chest Resp Effort & Inspection: normal respiratory effort and able to speak in complete sentences Auscultation: clear to auscultation bilaterally, no crackles, no rales, no rhonchi and no wheezes Cardio Rate: regular rate Rhythm: regular rhythm Heart sounds: S1 normal heart sound present and S2 normal heart sound present Bruits: no carotid bruits Peripheral pulses: Peripheral pulses 2+ throughout GI Inspection: Yes normal to inspection Skin Wounds: no wounds Hair: normal Neuro General: oriented to person, oriented to place and oriented to time Cranial nerves: Yes CN's II-XII intact bilaterally and Yes Normal hearing present Cognition (Neuro): normal cognition Motor exam (neuro): 5/5 motor strength present throughout Extrem Other: venous exam: No significant superficial varicosities or spider telangiectasias, minimal edema General: No clubbing, No cyanosis and No edema Psych Appearance: grossly normal Mental Status: mental status grossly normal Speech and movement: Normal speech and movement present Results Reviewed Results Reviewed: Carotid testing dated 09/18/2023 demonstrates right-sided 0-49% stenosis left side 50-79% stenosis with a peak systolic velocity of 203. No change from prior study. Written report and images were reviewed. Assessment & Plan Assessment & Plan (1) Bilateral carotid artery stenosis: Comment: Foll'd by Dr. Coker Code(s): I65.23 - Occlusion and stenosis of bilateral carotid arteries Plan: In short patient has asymptomatic carotid disease. We have reviewed signs and symptoms of a stroke. We also discussed risk factor modification inclusive a healthy diet low in cholesterol. The patient will follow up with us with surveillance ultrasound of the carotids 1 year. Should there be any changes or signs or symptoms of a stroke we will be happy to see them back sooner. Thank you for allowing us to participate in this patient's care. If there are any questions or concerns please do not hesitate to contact us. Orders: Orders US carotid duplex BI 364 Days I65.23 - Occlusion and stenosis of bilateral carotid arteries Coding Level of Care Code Est Pt Level 4 (70263) Diagnoses Bilateral carotid artery stenosis I65.23
== END 2023-10-10 14:38 | disposition home or self-care (01) ==
LOC: HO.HVS 14:10
PROVIDERS: PCP Internal Medicine; Visit Provider Surgery Vascular Surgery
DX: I65.23 Occlusion and stenosis of bilateral carotid arteries (principal)
CPT/HCPCS: 99213

== ENCOUNTER → 2023-10-10 14:10 | Outpatient (BNVA) | payer MEDICARE, SELFPAY | PROVIDERS: PCP Internal Medicine; Visit Provider Surgery Vascular Surgery | DX: I65.23 Occlusion and stenosis of bilateral carotid arteries (principal) | CPT/HCPCS: 99212 ==

== ENCOUNTER 2024-02-12 15:12 | Outpatient (AMB) | payer MEDICARE, SELFPAY ==
[2024-02-12 15:30] VITALS: BP 130/60; PULSE 70; BMI 29.8
--- NOTE | 2024-02-12 15:30 | A.OFFVIS_ITS ---
Vital Signs 02/12/24 15:30 Height 5 ft 3 in Weight 167 lb 15.876 oz BMI 29.8 BP 130/60 Blood Pressure Location Lt brachial Position Sitting Pulse 70 Pulse Source Pulse Oximeter Intake Visit Reasons: 6 month follow up Intake Note: pt is here for a 6 mth f/up/ pt states that she is doing fine. 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 Accompanied by: Self / Same As Patient Allergies ibuprofen [IBUPROFEN] Allergy (Mild, Verified 10/10/23 14:19) Nausea and Vomiting, Dizzy atorvastatin Allergy (Unknown, Verified 10/10/23 14:19) Diarrhea duloxetine Allergy (Unknown, Verified 10/10/23 14:19) Unknown meperidine [Demerol] Allergy (Unknown, Verified 10/10/23 14:19) Nausea and Vomiting penicillin V Allergy (Unknown, Verified 10/10/23 14:19) Does not work for her prednisone Allergy (Unknown, Verified 10/10/23 14:19) Rash Influenza Vac Split Quad Allergy (Unknown, Uncoded 10/10/23 14:19) Rash Levothroid Allergy (Unknown, Uncoded 10/10/23 14:19) chest pain, nausea, SOB MEDICATION FOR ARTHRITIS Adverse Reaction (Severe, Uncoded 10/10/23 14:19) DIZZINESS Medication List - Last Reconciled 02/12/24 by Christiano Randolph MD albuterol sulfate 90 mcg/actuation inhalation amlodipine 5 mg PO BID aspirin 81 mg PO DAILY calcium carbonate 1,000 mg PO DAILY cholecalciferol (vitamin D3) (Vitamin D3) 50 mcg PO DAILY empagliflozin (Jardiance) 1 tab PO DAILY fluticasone propionate 110 mcg/actuation (Flovent HFA) 2 puffs inhalation BID losartan 25 mg PO DAILY magnesium hydroxide (Dulcolax (magnesium hydroxide)) 400 mg PO DAILY PRN metoprolol succinate ER 100 mg PO DAILY nitroglycerin 0.4 mg sublingual Q5M PRN omeprazole 20 mg PO DAILY rosuvastatin 40 mg PO DAILY HPI Comments Details: 78-year-old female here for follow-up She has history of coronary disease with previous circumflex PCI. She has no chest discomfort or shortness of breath. She is compliant with medications. Denying any side effects from medications. She has history of carotid stenosis. She brought her home blood pressure readings and they are stable. She is taking medications regularly. No side effects from medications. 08/05/2023: She returns for follow-up. Blood pressure control is good. She is saying losartan was and 8 by her sewer pipe offbearer. She also was changed from simvastatin to rosuvastatin 20 mg daily. She is asking for script. 02/12/2024: She he is here for follow-up. She has been doing fine. No chest pain or shortness of breath. Her home blood pressure readings are quite high 180 systolic. Blood pressure in the office currently is 148/70 manually. She has been taking medications regularly. No complaints on follow-up. [facility] Medical History Osteoarthritis of lumbar spine Hypothyroid Asthma Elevated cholesterol Anxiety CKD (chronic kidney disease), stage IV Type 2 diabetes mellitus Osteoporosis Fibromyalgia On beta [place] at home Essential hypertension Bilateral carotid artery stenosis Other and unspecified hyperlipidemia Presence of stent in left circumflex coronary artery Atherosclerotic cardiovascular disease Carotid stenosis, left Surgical History History of lumbar laminectomy Hx of cholecystectomy H/O section History of cardiac cath Family History Father No problems noted. Mother No problems noted. Social History Are you a primary healthcare science specialist to a significant other at home: No Do you presently have visiting nurse or other home services: Yes (Homecare Services) Alcohol intake: never Patient Tobacco Use Status: Never used Tobacco Second Hand Smoke Exposure: No Review of Systems Const Denies chills, Denies fatigue, Denies fever(s), Denies frequent falls, Denies weakness, Denies weight gain and Denies weight loss ENT Denies dizziness Card Denies chest pain, Denies leg edema, Denies lightheadedness, Denies palpitations, Denies dyspnea and Denies dyspnea on exertion Resp Denies cough, Denies dyspnea and Denies dyspnea on exertion GI Denies hematochezia Musc Denies abnormal gait, Denies muscle weakness, Denies numbness, Denies radiating pain into limb and Denies tingling Neuro Denies abnormal gait, Denies dizziness, Denies frequent falls, Denies numbness, Denies tingling and Denies weakness Endo Denies fatigue and Denies palpitations Physical Exam Vital Signs: Last Vital Signs Pulse 70 02/12/24 15:30 BP 130/60 02/12/24 15:30 BMI result Body Mass Index 29.8 GENERAL APPEARANCE: in no acute distress, pleasant. NECK: no carotid bruit, no jugular venous distention. SKIN: no suspicious lesions, warm and dry. HEART: no murmurs, regular rate and rhythm. LUNGS: clear to auscultation bilaterally. ABDOMEN: soft, nontender. EXTREMITIES: no edema. PERIPHERAL PULSES: equal. NEUROLOGIC: No gross deficits, AAO X 3 Assessment & Plan Assessment & Plan (1) Stable angina: Code(s): I20.8 - Other forms of angina pectoris Category: Medical (2) Essential hypertension: Code(s): I10 - Essential (primary) hypertension Category: Medical Plan Pleasant 78-year-old female who is here for follow-up. She has background of hypertension. Blood pressure in the office is 148/70. She has home blood pressure readings which are quite high 170s systolic. I have advised her to increase the losartan to b.i.d.. She is going to see her primary care physician early March and will have blood pressure checked there. She will continue monitor blood pressure at home. She will see us back in 4 months. Thank you for allowing me to participate in the care of your patient. Please feel free to contact me if you have any questions. Medications: Changed From losartan 25 mg PO DAILY To losartan 25 mg PO BID 120 tabs 4RF Coding Level of Care Code Est Pt Level 3 (98708) Diagnoses Stable angina I20.8 Essential hypertension I10
== END 2024-02-12 15:59 | disposition home or self-care (01) ==
PROVIDERS: PCP Internal Medicine; Referring Provider Internal Medicine; Visit Provider Internal Medicine Cardiovascular Disease
DX: I20.89 Other forms of angina pectoris (principal); I10 Essential (primary) hypertension
CPT/HCPCS: 99213

== ENCOUNTER → 2024-02-12 15:12 | Outpatient (BNVA) | payer MEDICARE, SELFPAY | PROVIDERS: PCP Internal Medicine; Visit Provider Internal Medicine Cardiovascular Disease | DX: I25.118 Atherosclerotic heart disease of native coronary artery with other forms of angina pectoris (principal); I10 Essential (primary) hypertension | CPT/HCPCS: 99212 ==

== ENCOUNTER 2024-06-17 14:46 | Outpatient (AMB) | payer MEDICARE, SELFPAY ==
[2024-06-17 15:00] VITALS: BP 140/70; PULSE 68; BMI 29.4
--- NOTE | 2024-06-17 15:00 | MHC.OFFVIS ---
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 Required: No Accompanied by: Self / Same As Patient Allergies ibuprofen [IBUPROFEN] Allergy (Mild, Verified 10/10/23 14:19) Nausea and Vomiting, Dizzy atorvastatin Allergy (Unknown, Verified 10/10/23 14:19) Diarrhea duloxetine Allergy (Unknown, Verified 10/10/23 14:19) Unknown meperidine [Demerol] Allergy (Unknown, Verified 10/10/23 14:19) Nausea and Vomiting penicillin V Allergy (Unknown, Verified 10/10/23 14:19) Does not work for her prednisone Allergy (Unknown, Verified 10/10/23 14:19) Rash Influenza Vac Split Quad Allergy (Unknown, Uncoded 10/10/23 14:19) Rash Levothroid Allergy (Unknown, Uncoded 10/10/23 14:19) chest pain, nausea, SOB MEDICATION FOR ARTHRITIS Adverse Reaction (Severe, Uncoded 10/10/23 14:19) DIZZINESS Medication List - Last Reconciled 06/17/24 by Christiano Randolph MD albuterol sulfate 90 mcg/actuation inhalation amlodipine 5 mg PO BID aspirin 81 mg PO DAILY blood pressure monitor (Blood Pressure Kit) As directed calcium carbonate 1,000 mg PO DAILY fluticasone propionate 110 mcg/actuation (Flovent HFA) 2 puffs inhalation BID hydralazine 25 mg PO BID magnesium hydroxide (Dulcolax (magnesium hydroxide)) 400 mg PO DAILY PRN metoprolol succinate ER 100 mg PO DAILY nitroglycerin 0.4 mg sublingual Q5M PRN omeprazole 20 mg PO BID rosuvastatin 40 mg PO DAILY HPI Comments Details: 78-year-old female here for follow-up She has history of coronary disease with previous circumflex PCI. She has no chest discomfort or shortness of breath. She is compliant with medications. Denying any side effects from medications. She has history of carotid stenosis. She brought her home blood pressure readings and they are stable. She is taking medications regularly. No side effects from medications. 08/05/2023: She returns for follow-up. Blood pressure control is good. She is saying losartan was and 8 by her head cook. She also was changed from simvastatin to rosuvastatin 20 mg daily. She is asking for script. 02/12/2024: She he is here for follow-up. She has been doing fine. No chest pain or shortness of breath. Her home blood pressure readings are quite high 180 systolic. Blood pressure in the office currently is 148/70 manually. She has been taking medications regularly. No complaints on follow-up. 06/17/2024: She is here for follow-up. Blood pressure control is okay. She had some medication changes made by Nephrology. She is closely following them. No symptoms. [facility] Medical History Osteoarthritis of lumbar spine Hypothyroid Asthma Elevated cholesterol Anxiety CKD (chronic kidney disease), stage IV Type 2 diabetes mellitus Osteoporosis Fibromyalgia On beta [place] at home Essential hypertension Bilateral carotid artery stenosis Other and unspecified hyperlipidemia Presence of stent in left circumflex coronary artery Atherosclerotic cardiovascular disease Carotid stenosis, left Surgical History History of lumbar laminectomy Hx of cholecystectomy H/O section History of cardiac cath Family History Father No problems noted. Mother No problems noted. Social History Are you a primary workforce investment act career manager to a significant other at home: No Do you presently have visiting nurse or other home services: Yes (Homecare Services) Alcohol intake: never Patient Tobacco Use Status: Never used Tobacco Second Hand Smoke Exposure: No Review of Systems Const Denies chills, Denies fatigue, Denies fever(s), Denies frequent falls, Denies weakness, Denies weight gain and Denies weight loss ENT Denies dizziness Card Denies chest pain, Denies leg edema, Denies lightheadedness, Denies palpitations, Denies dyspnea and Denies dyspnea on exertion Resp Denies cough, Denies dyspnea and Denies dyspnea on exertion GI Denies hematochezia Musc Denies abnormal gait, Denies muscle weakness, Denies numbness, Denies radiating pain into limb and Denies tingling Neuro Denies abnormal gait, Denies dizziness, Denies frequent falls, Denies numbness, Denies tingling and Denies weakness Endo Denies fatigue and Denies palpitations Physical Exam Vital Signs: Last Vital Signs Pulse 68 06/17/24 15:00 BP 140/70 H 06/17/24 15:00 BMI result Body Mass Index 29.4 GENERAL APPEARANCE: in no acute distress, pleasant. NECK: no carotid bruit, no jugular venous distention. SKIN: no suspicious lesions, warm and dry. HEART: no murmurs, regular rate and rhythm. LUNGS: clear to auscultation bilaterally. ABDOMEN: soft, nontender. EXTREMITIES: no edema. PERIPHERAL PULSES: equal. NEUROLOGIC: No gross deficits, AAO X 3 Office Procedures EKG Details: Sinus rhythm 68 beats per minute, normal axis, poor R-wave progression can not rule out anterior infarct, QTC 414 milliseconds. [id number], Complete Assessment & Plan Assessment & Plan (1) Essential hypertension: Code(s): I10 - Essential (primary) hypertension Category: Medical Plan Pleasant 78 year female who is here for follow-up. She has background history of hypertension and coronary disease. She has no angina. Blood pressure is okay and she is going to follow closely with Nephrology. She wishes to see us once a year. Thank you for allowing me to participate in the care of your patient. Please feel free to contact me if you have any questions. Medications: New blood pressure monitor (Blood Pressure Kit) As directed 1 ea 0RF I10 - Essential (primary) hypertension hydralazine 25 mg PO BID 1 tab 0RF I10 - Essential (primary) hypertension Coding Level of Care Code Procedure Only Diagnoses Essential hypertension I10 CPT Codes EKG - CPT: 18183-[id number], Complete ([id number])
== END 2024-06-17 15:30 | disposition home or self-care (01) ==
LOC: HO.HCS 14:47
PROVIDERS: PCP Internal Medicine; Visit Provider Internal Medicine Cardiovascular Disease
DX: I10 Essential (primary) hypertension (principal); I25.10 Atherosclerotic heart disease of native coronary artery without angina pectoris; R94.31 Abnormal electrocardiogram [ECG] [EKG]
CPT/HCPCS: 93010; 99213

== ENCOUNTER → 2024-06-17 14:46 | Outpatient (BNVA) | payer MEDICARE, SELFPAY | PROVIDERS: PCP Internal Medicine; Visit Provider Internal Medicine Cardiovascular Disease | DX: I10 Essential (primary) hypertension (principal); R94.31 Abnormal electrocardiogram [ECG] [EKG] | CPT/HCPCS: 93005; 99212 ==

== ENCOUNTER 2024-12-23 11:22 | Outpatient (REF) | payer MEDICARE, SELFPAY ==
--- NOTE | ~2024-12-23 | US_ITS ---
EXAMINATION: BILATERAL CAROTID ULTRASOUND WITH DOPPLER HISTORY: I65.23 - Occlusion and stenosis of bilateral carotid arteries COMPARISON: Comparison is made with the prior examination dated 09/18/2023. TECHNIQUE: Real time and Color and Spectral doppler ultrasonography of the carotid and vertebral arteries was performed in multiple planes. FINDINGS: There is a moderate amount of vacuum both internal carotid arteries. Plaque is also seen in the right subclavian artery. An arrhythmia is noted during the course of the study. VERTEBRAL FLOW DIRECTION: Antegrade bilaterally. PEAK SYSTOLIC VELOCITIES (in cm/sec): RIGHT: CCA: Prox: 80.7 Dist: 53.6 ICA: Prox: 102 Mid: 161 Dist: Not visualized ICA/CCA Ratio: 2.00 ECA: 357 Peak ICA EDV: 42.8 LEFT: CCA: Prox: 56.8 Dist: 61.8 ICA: Prox: 289 Mid: 185 Dist: 77.1 ICA/CCA Ratio: 4.68 ECA: 154 Peak ICA EDV: 60.0 US/US carotid duplex BI IMPRESSION: 1. Findings consistent with 0-49% stenosis of the right internal carotid artery. Please note that the distal right carotid artery is not visualized. 2. Findings consistent with 50-79% stenosis of the left internal carotid artery. 3. An arrhythmia is noted during the course of the study. EKG correlation is suggested. Electronically signed by: Sudeep Reyes MD 12/23/2024 01:05 PM EDT
== END 2024-12-23 11:23 | disposition home or self-care (01) ==
LOC: HO.US 11:22
PROVIDERS: Visit Provider Surgery Vascular Surgery
DX: I65.23 Occlusion and stenosis of bilateral carotid arteries (principal)
CPT/HCPCS: 93880

== ENCOUNTER → 2024-12-23 11:24 | Outpatient (BNV) | payer MEDICARE, SELFPAY | PROVIDERS: Visit Provider Radiology Diagnostic Radiology | DX: I65.23 Occlusion and stenosis of bilateral carotid arteries (principal); I49.9 Cardiac arrhythmia, unspecified | CPT/HCPCS: 93880 ==

== ENCOUNTER 2025-01-07 13:46 | Outpatient (AMB) | payer MEDICARE, SELFPAY ==
--- NOTE | 2025-01-07 13:52 | A.OFFVIS_ITS ---
Intake Visit Reasons: Follow up 12/23 carotid US Intake Note: Patient presents for carotid follow up. States she has pain on the left side of her neck. Accompanied by: Self / Same As Patient Allergies ibuprofen [IBUPROFEN] Allergy (Mild, Verified 01/07/25 13:54) Nausea and Vomiting, Dizzy atorvastatin Allergy (Unknown, Verified 01/07/25 13:54) Diarrhea duloxetine Allergy (Unknown, Verified 01/07/25 13:54) Unknown meperidine [Demerol] Allergy (Unknown, Verified 01/07/25 13:54) Nausea and Vomiting penicillin V Allergy (Unknown, Verified 01/07/25 13:54) Does not work for her prednisone Allergy (Unknown, Verified 01/07/25 13:54) Rash Influenza Vac Split Quad Allergy (Unknown, Uncoded 10/10/23 14:19) Rash Levothroid Allergy (Unknown, Uncoded 10/10/23 14:19) chest pain, nausea, SOB MEDICATION FOR ARTHRITIS Adverse Reaction (Severe, Uncoded 10/10/23 14:19) DIZZINESS HPI HPI Follow up 12/23 carotid US: Details: The patient is an 79-year-old female presenting for her annual carotid surveillance follow-up. She reports left jaw pain, which she associates with her known diagnosis of fibromyalgia, suggesting a consistent pattern of musculoskeletal pain. Her carotid artery stenosis has demonstrated stability with no progression over the last four to five years, confirmed by today's ultrasound and prior imaging. She is currently asymptomatic from a carotid standpoint. She now presents for routine carotid surveillance with ultrasound. [facility] Medical History Osteoarthritis of lumbar spine Hypothyroid Asthma Elevated cholesterol Anxiety CKD (chronic kidney disease), stage IV Type 2 diabetes mellitus Osteoporosis Fibromyalgia On beta [place] at home Essential hypertension Bilateral carotid artery stenosis Other and unspecified hyperlipidemia Presence of stent in left circumflex coronary artery Atherosclerotic cardiovascular disease Carotid stenosis, left Surgical History History of lumbar laminectomy Hx of cholecystectomy H/O section History of cardiac cath Family History Father No problems noted. Mother No problems noted. Social History (Reviewed 06/17/24 @ 15:11 by Alma Rosa Fitch [facility]) Are you a primary workforce investment act career manager to a significant other at home: No Do you presently have visiting nurse or other home services: Yes (Homecare Services) Alcohol intake: never Patient Tobacco Use Status: Never used Tobacco Second Hand Smoke Exposure: No Review of Systems Const All systems reviewed & are unremarkable except as noted in HPI and below Reports no additional complaints ENT Reports Normal hearing present Card Denies chest pain, Denies chest pain at rest, Denies chest pain with activity and Denies pedal edema Resp Denies cough GI Denies abdominal pain Musc Denies abnormal gait, Denies muscle cramps and Denies radiating pain into limb Skin/Breast Denies skin ulcer and Denies wounds Neuro Reports Normal hearing present and Denies abnormal gait Psych Reports no additional complaints Physical Exam Const General: cooperative, healthy appearing and comfortable Orientation/consciousness: oriented to person, oriented to place and oriented to time HEENT Head: Yes normal to inspection Neck Neck: Yes normal visual inspection Carotids: no bruits Chest Chest palpation & inspection: normal inspection of the chest Resp Effort & Inspection: normal respiratory effort and able to speak in complete sentences Auscultation: clear to auscultation bilaterally, no crackles, no rales, no rhonchi and no wheezes Cardio Rate: regular rate Rhythm: regular rhythm Heart sounds: S1 normal heart sound present and S2 normal heart sound present Bruits: no carotid bruits Peripheral pulses: Peripheral pulses 2+ throughout GI Inspection: Yes normal to inspection Skin Wounds: no wounds Hair: normal Neuro General: oriented to person, oriented to place and oriented to time Cranial nerves: Yes CN's II-XII intact bilaterally and Yes Normal hearing present Cognition (Neuro): normal cognition Motor exam (neuro): 5/5 motor strength present throughout Extrem Other: venous exam: No significant superficial varicosities or spider telangiectasias, minimal edema General: No clubbing, No cyanosis and No edema Psych Appearance: grossly normal Mental Status: mental status grossly normal Speech and movement: Normal speech and movement present Results Reviewed Results Reviewed: Noninvasive arterial testing dated 12/23/2024 demonstrates right-sided 0-49% stenosis left side 50-79% stenosis with a peak systolic of 289. Assessment & Plan Assessment & Plan (1) Bilateral carotid artery stenosis: Comment: Foll'd by Dr. Coker Code(s): I65.23 - Occlusion and stenosis of bilateral carotid arteries Category: Medical Plan: In short patient has asymptomatic carotid disease. We have reviewed signs and symptoms of a stroke. We also discussed risk factor modification inclusive a healthy diet low in cholesterol. The patient will follow up with us with surveillance ultrasound of the carotids 1 year. Should there be any changes or signs or symptoms of a stroke we will be happy to see them back sooner. Thank you for allowing us to participate in this patient's care. If there are any questions or concerns please do not hesitate to contact us. Orders: Orders US carotid duplex BI 1 Year I65.23 - Occlusion and stenosis of bilateral carotid arteries Coding Level of Care Code Est Pt Level 4 (06888) Complex EM visit Add On G2211 Diagnoses Bilateral carotid artery stenosis I65.23
--- OUTSIDE RECORDS SUMMARY | 2025-01-07 13:56 | XMS_ITS | Clinical Summary ---
Author Organization [facility] [address] [place] [address] [place] [phone] Phone Care Team Providers Care Chief Resource Officer Name Role Phone James Virgen MD Primary Care Provider Allergies Active Allergy Reactions Criticality Noted Date Comments Atorvastatin Diarrhea 05/09/2018 Other Reaction(s): Myalgia and Joint Pain Flu Virus Vaccine Tv 2015- (18 Yr And Up),Recomb 08/09/2016 Refuses gets her sick/rash,fever Ibuprofen Nausea And Vomiting High 12/30/2008 Gets dizzy Levothyroxine Sodium Headache,Wheezing High 08/04/20 09 Chest pains, nausea, diarrhea Meperidine Hcl Nausea And Vomiting 02/08/2010 Room spins Penicillins 07/21/2009 Other Reaction(s): OTHER Does not work for patient Prednisone 09/22/2015 Other Reaction(s): Rash/Dermatitis Simvastatin 11/29/2022 Other Reaction(s): Myalgia and Joint Pain Medications hydrALAZINE (APRESOLINE) 25 mg tablet Take 1 tablet (25 mg total) by mouth 2 (two) times a day. 04/13/20 24 Active rosuvastatin (CRESTOR) 40 mg tablet 01/27/20 24 Active metoprolol succinate (TOPROL-XL) 100 mg 24 hr tablet Take 1 tablet (100 mg total) by mouth 1 (one) time each day. 12/18/19 24 Active Autolet (OneTouch Delica Plus Lanc Dev) lancing device As directed 2 times a day 05/16/20 23 Active amLODIPine (NORVASC) 5 mg tablet Take 1 tablet (5 mg total) by mouth 2 (two) times a day. Active magnesium oxide (MAG-OX) 400 mg magnesium tablet Take 1 tablet (400 mg total) by mouth 1 (one) time each day. Active nitroglycerin (NITROSTAT) 0.[address] 1 Tab under the tongue every 5 minutes as needed for Chest pain. 12/16/19 19 Active aspirin 81 mg chewable tablet Chew 1 tablet (81 mg total) 1 (one) time each day. 05/20/20 18 Active [employer] Ultra Test test strip Use to test blood sugar 1 times a day.Use to test blood sugar 1 times a day. 100 each 11 07/04/20 24 Active lancets (FNDTouch Delica Plus Lancet) 33 gauge 1 Stick by Does not apply route 2 times daily. Use for checking BS 180 each 3 08/18/20 24 Active omeprazole (PriLOSEC) [address] capsule TAKE ONE CAPSULE BY MOUTH TWICE A DAY 180 capsule 11/24/19 25 Active UNABLE TO FIND Med Name: Penetrex cream Active albuterol HFA (PROAIR HFA ; PROVENTIL HFA ; VENTOLIN HFA) 90 mcg/actuation inhaler Inhale 2 puffs by mouth every 4 (four) hours if needed for wheezing. Inhale 2 Puffs into the lungs every 4 hours as needed for Wheezing or Shortness of Breath. 6.7 g 1 12/17/19 25 Active Arnuity Ellipta 100 mcg/actuation blister with device inhaler Inhale 1 puff by mouth 1 (one) time each day. 1 each 1 12/18/19 25 Active Euthyrox 50 mcg tablet TAKE ONE TABLET BY MOUTH EVERY DAY 90 tablet 1 12/26/19 25 Active fluticasone furoate (Arnuity Ellipta) 100 mcg/actuation blister with device inhaler Inhale 2 puffs by mouth 2 (two) times a day. 05/12/20 24 025 Discontinued(Re order) albuterol HFA (PROAIR HFA ; PROVENTIL HFA ; VENTOLIN HFA) 90 mcg/actuation inhaler Inhale 2 Puffs into the lungs every 4 hours as needed for Wheezing or Shortness of Breath. 02/19/20 24 025 Discontinued(Re order) levothyroxine (SYNTHROID, LEVOTHROID) 50 mcg tablet Take 1 tablet (50 mcg total) by mouth 1 (one) time each day. 12/18/19 24 025 Discontinued gabapentin (NEURONTIN) 100 mg capsule Take 1 capsule (100 mg total) by mouth at bedtime. 90 each 1 07/10/20 24 025 Discontinued(Pa tient Discharge) Arnuity Ellipta 100 mcg/actuation blister with device inhaler Inhale 2 puffs by mouth 1 (one) time each day. 1 each 1 12/17/19 25 025 Discontinued(Re order) Active Problems Problem Noted Date Diagnosed Date Renal cyst 04/06/2024 Type 2 diabetes mellitus wit h cataract ([facility] V24, [facility] V28) 12/20/2021 Osteoporosis 09/20/2021 Type II diabetes mellitus wi th renal manifestations ([facility] V24, [facility] V28) 07/06/2021 Type 2 diabetes mellitus wit h vascular disease ([facility] V24, [facility] V28) 07/06/2021 Obesity (BMI 30.0-34.9) 07/06/2021 Bilateral carotid artery stenosis 03/21/2021 Overview (06/08/2024): Dr. Coker CKD (chronic kidney disease) stage 4, GFR 15-29 ml/min ([facility] V24, [facility] V28) 06/04/2018 CAD (coronary artery disease) 05/20/2018 Overview (06/08/2024): s/p FERMIN in 2018 Anxiety 05/02/2017 Essential hypertension 12/14/2016 Fibromyalgia 12/14/2016 Aortic valve sclerosis 12/13/2016 Venous insufficiency of both lower extremities 0 03/17/2015 Vitamin D deficiency 12/08/2009 High cholesterol 10/18/2009 Asthma 09/22/2009 Osteoarthritis of lumbar spine 05/17/2009 Hypothyroid 01/10/2009 Encounters Date Type Department Care Team Description 12/16/2024 1:30 PM EDT Office Visit Adult Medicine [address] [phone] James Virgen MD Hospital discharge follow-up (Primary Dx); Type 2 diabetes mellitus with cataract ([facility] V24, [facility] V28); Type 2 diabetes mellitus with vascular disease ([facility] V24, [facility] V28); CKD (chronic kidney disease) stage 4, GFR 15-29 ml/min ([facility] V24, [facility] V28); Type 2 diabetes mellitus with stage 4 chronic kidney disease, without long-term current use of insulin ([facility] V24, [facility] V28); Other specified hypothyroidism; Coronary artery disease involving [place] coronary artery of [place] heart without angina pectoris; Essential hypertension; Encounter for vitamin deficiency screening 11/30/2024 Telephone Adult Medicine [address] [phone] James Virgen MD from Last 3 Months Immunizations Name Administration Dates Next Due H1N1 Inj Preservative Free 09/22/2009 Pneumococcal polysaccharide 23 valent (Pneumovax 23) 2yo and older 09/22/2009 Td Tetanus diptheria (Tdvax) 7yo and older 11/15,12/30/2008 Surgical History Surgery Date Site/Laterality Comments LUMBAR LAMINECTOMY 04/19/1970 PROCEDURE: HISTORICAL LUMB LAMINECTOMY CHOLECYSTECTOMY approx 1999 PROCEDURE: HISTORICAL CHOLECYSTECTOMY CATARACT EXTRACTION 11/2021 Bilateral PROCEDURE: HISTORICAL CATARACT REMOVAL Medical History Medical History Date Comments Previous back surgery 12/30/2008 DX:Previou s back surgery Hypothyroid 01/10/2009 DX:Hypothyroid Calculus of kidney 01/10/2009 DX:Calculus o f kidney Unspecified disorder of lipo id metabolism 01/10/2009 DX:Unspecified disorder of l ipoid metabolism Osteoarthritis of lumbar spine 05/17/2009 D X:Osteoarthritis of lumbar spine Pain in joint, multiple sites 05/17/2009 DX :Pain in joint, multiple sites Fibromyalgia DX:Fibromyalgia High calcium levels DX:High calc ium levels Family History Medical History Relation Name Comments Other: kidney disease Daughter 1 Diabetes Mother ?CABG Breast cancer Neg Hx Colon cancer Neg Hx Relation Name Status Comments Daughter 1 Daughter 2 Mother Social History Tobacco Use Types Packs/Day Years Used Date Smoking Tobacco: Never Smokeless Tobacco: Never Tobacco Cessation:Counseling Given: Not Answered Alcohol Use Standard Drinks/Week Comments No 0 (1 standard drink = 0.6 oz pur e alcohol) Comments Unknown Sex and Gender Information Value Date Recorded Sex Assigned at Not on file Legal Sex Female 7:50 AM EST Gender Identity Not on file Sexual Orientation Not on file Obstetrics History Last Filed Vital Signs Vital Sign Reading Time Taken Comments Blood Pressure 120/60 12/16/2024 1:31 PM EDT Pulse 67 12/16/2024 1:31 PM EDT Temperature 36.4 ??C (97.5 ??F) 12/16/2024 1:31 PM ED T Respiratory Rate 15 12/16/2024 1:31 PM EDT Oxygen Saturation 97% 12/16/2024 1:31 PM EDT Inhaled Oxygen Concentration - - Weight 70 kg (154 lb 6.4 oz) 12/16/2024 1:31 PM EDT Height 158.8 cm (5' 2.5 ) 12/16/2024 1:31 PM EDT Body Mass Index 27.79 12/16/2024 1:31 PM EDT Plan of Treatment Upcoming Encounters Date Type Department Care Team (Late st Contact Info) Description 02/17/2025 1:30 PM EDT Office Visit Adult Medicine East - [address] [phone] James Virgen MD [address] [place], [place] 11/08/2025 2:00 PM EDT Office Visit General Surgery [facility] [address] [phone] Cristian Ratliff MD [address] [address] 02/08/2026 2:00 PM EDT Office Visit Endocrinology [address] [phone] Brittany Pollard MD [address] [place] [address] Health Maintenance Due Date Last Done Comments Diabetes: Annual Retina Eye Exam 12/14/1955 Social Influencers of Health Screening 07/28/2022 Falls Risk Assessment 07/09/2024 07/09/2023 Medicare Annual Wellness Visit 07/09/2024 07/09/2023 Diabetes: Blood Sugar Control Test (HGBA1C) 09/23/2024 03/23/2024, 03/23/2024, 12/18/2023 Diabetes: Annual Foot Exam 03/23/2025 03/23/2024 Depression Screening 07/10/2025 07/10/2024, 07/09/20 23 Diabetes: Annual Urine Albumin-Creatinine Ratio (uACR) 11/25/2025 11/25/2024, 05/27/2024, 03/23/2024 Diabetes: Annual GFR (Glomerular Filtration Rate) 11/27/2025 11/27/2024, 11/25/2024, 03/23/2024, Additional history exists Hypertension/CHF/CAD Annual BMP Blood Test 11/27/2025 11/27/2024, 11/25/2024, 03/23/2024, Additional history exists Cholesterol Screening (Lipid Panel) 03/23/2029 03/23/2024, 03/23/2024, 12/18/2023 Osteoporosis Screening (Bone Density Screening) 09/20/2031 09/20/2021, 11/14/2017 DTaP,Tdap,and Td Vaccines (3 - Td or Tdap) 11/16/2031 11/15/2021, 12/30/2008 Influenza Vaccine Discontinued 09/22/2009 Pneumococcal Vaccine: 50+ Years Discontinued 09/22/2009 COVID-19 Vaccine Discontinued HIB Vaccines Aged Out No longer eligi ble based on patient's age to complete this topic HPV Vaccines Aged Out No longer eligi ble based on patient's age to complete this topic Hepatitis A Vaccines Aged Out No long er eligible based on patient's age to complete this topic Hepatitis B Vaccines Aged Out No long er eligible based on patient's age to complete this topic IPV Vaccines Aged Out No longer eligi ble based on patient's age to complete this topic MMR Vaccines Aged Out No longer eligi ble based on patient's age to complete this topic Meningococcal ACWY Vaccine Aged Out N o longer eligible based on patient's age to complete this topic Meningococcal B Vaccine Aged Out No l onger eligible based on patient's age to complete this topic RSV Immunization Adult Patients Discontinued RSV Immunization Patients Under 20 months Aged Out No longer eligible based on patient's age to complete this topic Varicella Vaccines Aged Out No longer eligible based on patient's age to complete this topic Zoster Vaccines Discontinued Procedures Procedure Name Priority Date/Time Associated Diagnosis Comments PARATHYROID HORMONE INTACT Routine 11/27/2024 12:34 PM EDT Chronic kidney disease, stage IV (severe) ([facility] V24, [facility] V28) Hyperparathyroidism due to renal insufficiency ([facility] V24) Benign hypertensive kidney disease with chronic kidney disease stage I through stage IV, or unspecified(403.10) Complex renal cyst RENAL FUNCTION PANEL Routine 11/27/2024 12:34 PM EDT Chronic kidney disease, stage IV (severe) ([facility] V24, [facility] V28) Hyperparathyroidism due to renal insufficiency ([facility] V24) Benign hypertensive kidney disease with chronic kidney disease stage I through stage IV, or unspecified(403.10) Complex renal cyst VITAMIN D 25 HYDROXY Routine 11/27/2024 12:34 PM EDT Chronic kidney disease, stage IV (severe) ([facility] V24, [facility] V28) Hyperparathyroidism due to renal insufficiency ([facility] V24) Benign hypertensive kidney disease with chronic kidney disease stage I through stage IV, or unspecified(403.10) Complex renal cyst PROTEIN AND CREATININE WITH RATIO, URINE Routine 11/27/2024 12:34 PM EDT Chronic kidney disease, stage IV (severe) ([facility] V24, [facility] V28) Hyperparathyroidism due to renal insufficiency ([facility] V24) Benign hypertensive kidney disease with chronic kidney disease stage I through stage IV, or unspecified(403.10) Complex renal cyst COMPREHENSIVE METABOLIC PANEL Routine 11/25/2024 12:43 PM EDT CKD (chronic kidney disease) stage 4, GFR 15-29 ml/min ([facility] V24, [facility] V28) VITAMIN D 25 HYDROXY Routine 11/25/2024 12:43 PM EDT CKD (chronic kidney disease) stage 4, GFR 15-29 ml/min ([facility] V24, [facility] V28) PARATHYROID HORMONE INTACT Routine 11/25/2024 12:43 PM EDT CKD (chronic kidney disease) stage 4, GFR 15-29 ml/min ([facility] V24, [facility] V28) MICROALBUMIN CREATININE URINE RATIO Routine 11/25/2024 12:43 PM EDT CKD (chronic kidney disease) stage 4, GFR 15-29 ml/min ([facility] V24, [facility] V28) HEMOGLOBIN A1C Routine 03/23/2024 LIPID PANEL Routine 03/23/2024 DIABETES FOOT EXAM Routine 03/23/2024 DEPRESSION SCREENING Routine 07/09/2023 FALLS RISK ASSESSMENT Routine 07/09/2023 DXA BONE DENSITY STUDY 1+ SITS AXIAL SKEL Routine 09/20/2021 2:45 PM EST Other specified disorders of bone density and structure, unspecified site from Last 3 Months or Most Recently Relevant to Health Maintenance Results * (ABNORMAL) Protein and creatinine with ratio, urine (11/27/2024 12:34 PM EDT) Protein, Urine 252 mg/dL LAB CHEMISTRY METHOD 11/27/2024 5:17 PM EDT [facility] Prot/Creat, Ur 2.17(H) <=0.20 mg/mg creat LAB CHEMISTRY METHOD 11/27/2024 5:17 PM T [facility] Creatinine, Urine 116.0 mg/dL LAB CHEMISTRY METHOD 11/27/2024 5:17 PM [facility] Urine Urine specimen obtained by clean catch procedure / Unknown Non-blood Collection / Unknown 11/27/2024 12:34 PM EDT 11/27/2024 12:34 PM EDT us Agustin Peng MD LAB URINE ORDERABLES Final Resu lt [facility] [address] [place] [address], [place] [phone] * (ABNORMAL) Vitamin D 25 hydroxy (11/27/2024 12:34 PM EDT) Only the most recent of2 resultswithin the time period is included. Vit D, 25-Hydroxy 13.2(L) 30.0 - 80.0 ng/mL LAB CHEMISTRY METHOD 11/27/2024 5:40 PM EDT [facility] Blood Venous blood specimen / Unknown Venipuncture / Unknown 11/27/2024 12:34 PM EDT 11/27/2024 12:34 PM EDT us Agustin Peng MD LAB BLOOD ORDERABLES Final Resu lt Performing Organization Address [facility]/ZIP Co de Phone Number [facility] [address] [place] [address], [place] [phone] * (ABNORMAL) Parathyroid hormone intact (11/27/2024 12:34 PM EDT) Only the most recent of2 resultswithin the time period is included. PTH 237.9(H) 18.5 - 88.0 pcg/mL LAB CHEMISTRY METHOD 11/27/2024 6:54 PM EDT [facility] Blood Venous blood specimen / Unknown Venipuncture / Unknown 11/27/2024 12:34 PM EDT 11/27/2024 12:34 PM EDT us Agustin Peng MD LAB BLOOD ORDERABLES Final Resu lt [facility] [address] [place] [address], [place] [phone] * (ABNORMAL) Renal function panel (11/27/2024 12:34 PM EDT) Sodium 140 133 - 145 mmol/L LAB CHEMISTRY METHOD 11/27/2024 5:10 PM [facility] Potassium 4.2 3.5 - 5.5 mmol/L LAB CHEMISTRY METHOD 11/27/2024 5:10 PM [facility] Chloride 109 96 - 110 mmol/L LAB CHEMISTRY METHOD 11/27/2024 5:10 PM [facility] CO2 23 21 - 32 mmol/L LAB CHEMISTRY METHOD 11/27/2024 5:10 PM [facility] Anion Gap 8 3 - 11 LAB CHEMISTRY METHOD 11/27/2024 5:10 PM [facility] Glucose 101(H) 70 - 100 mg/dL LAB CHEMISTRY METHOD 11/27/2024 5:10 PM [facility] BUN 35(H) 5 - 25 mg/dL LAB CHEMISTRY METHOD 11/27/2024 5:10 PM [facility] Creatinine 2.27(H) 0.50 - 1.10 mg/dL LAB CHEMISTRY METHOD 11/27/2024 5:10 PM [facility] eGFR 21(L) >=60 mL/min/1. 73m2 LAB CHEMISTRY METHOD 11/27/2024 5:10 PM [facility] Comment:Calculation based on the??Chronic Kidney Disease Epidemiology Collaboration (CKD-EPI) equation refit??without adjustment for race. BUN/Creatinine Ratio 15.4 LAB CHEMISTRY METHOD 11/27/2024 5:10 PM [facility] Albumin 3.6 3.2 - 5.0 g/dL LAB CHEMISTRY METHOD 11/27/2024 5:10 PM [facility] Calcium 9.4 8.5 - 10.5 mg/dL LAB CHEMISTRY METHOD 11/27/2024 5:10 PM EDT [facility] Phosphorus 4.1 2.5 - 4.5 mg/dL LAB CHEMISTRY METHOD 11/27/2024 5:10 PM EDT [facility] Blood Venous blood specimen / Unknown Venipuncture / Unknown 11/27/2024 12:34 PM EDT 11/27/2024 12:34 PM EDT Agustin Peng MD LAB BLOOD ORDERABLES Final Resu lt Performing Organization Address City/[facility]/ZIP Co de Phone Number [facility] [address] [place] [address], [place] [phone] * (ABNORMAL) Microalbumin creatinine urine ratio (11/25/2024 12:43 PM EDT) Creatinine, Urine 141.0 mg/dL LAB CHEMISTRY METHOD 11/25/2024 5:13 PM EDT [facility] Microalb, Ur 2,250.0(H ) 0.0 - 29.0 mg/L LAB CHEMISTRY METHOD 11/25/2024 5:13 PM EDT [facility] Comment:Results verified by repeat testing Microalb/Crea t Ratio 1,596(H) <30 mg/g creat LAB CHEMISTRY METHOD 11/25/2024 5:13 PM EDT [facility] Urine Urine specimen obtained by clean catch procedure / Unknown Non-blood Collection / Unknown 11/25/2024 12:43 PM EDT 11/25/2024 12:43 PM EDT James Virgen MD LAB URINE ORDERABLES F inal Result Performing Organization Address City/[facility]/ZIP Co de Phone Number [facility] [address] [place] [address], [place] [phone] * (ABNORMAL) Comprehensive metabolic panel (11/25/2024 12:43 PM EDT) Sodium 141 133 - 145 mmol/L LAB CHEMISTRY METHOD 11/25/2024 5:11 PM [facility] Potassium 4.5 3.5 - 5.5 mmol/L LAB CHEMISTRY METHOD 11/25/2024 5:11 PM [facility] Chloride 108 96 - 110 mmol/L LAB CHEMISTRY METHOD 11/25/2024 5:11 PM [facility] CO2 24 21 - 32 mmol/L LAB CHEMISTRY METHOD 11/25/2024 5:11 PM [facility] Anion Gap 9 3 - 11 LAB CHEMISTRY METHOD 11/25/2024 5:11 PM [facility] Glucose 121(H) 70 - 100 mg/dL LAB CHEMISTRY METHOD 11/25/2024 5:11 PM [facility] BUN 39(H) 5 - 25 mg/dL LAB CHEMISTRY METHOD 11/25/2024 5:11 PM [facility] Creatinine 2.36(H) 0.50 - 1.10 mg/dL LAB CHEMISTRY METHOD 11/25/2024 5:11 PM [facility] eGFR 20(L) >=60 mL/min/1. 73m2 LAB CHEMISTRY METHOD 11/25/2024 5:11 PM [facility] Comment:Calculation based on the??Chronic Kidney Disease Epidemiology Collaboration (CKD-EPI) equation refit??without adjustment for race. BUN/Creatinine Ratio 16.5 LAB CHEMISTRY METHOD 11/25/2024 5:11 PM [facility] Calcium 9.5 8.5 - 10.5 mg/dL LAB CHEMISTRY METHOD 11/25/2024 5:11 PM [facility] AST (SGOT) 24 10 - 42 unit/L LAB CHEMISTRY METHOD 11/25/2024 5:11 PM [facility] ALT (SGPT) 23 10 - 60 unit/L LAB CHEMISTRY METHOD 11/25/2024 5:11 PM EDT [facility] Alkaline Phosphatase 46 42 - 121 unit/L LAB CHEMISTRY METHOD 11/25/2024 5:11 PM EDT [facility] Total Protein 7.1 6.0 - 8.0 g/dL LAB CHEMISTRY METHOD 11/25/2024 5:11 PM EDT [facility] Albumin 3.6 3.2 - 5.0 g/dL LAB CHEMISTRY METHOD 11/25/2024 5:11 PM EDT [facility] Total Bilirubin 0.8 0.0 - 1.4 mg/dL LAB CHEMISTRY METHOD 11/25/2024 5:11 PM EDT [facility] Blood Venous blood specimen / Unknown Venipuncture / Unknown 11/25/2024 12:43 PM EDT 11/25/2024 12:43 PM EDT James Virgen MD LAB BLOOD ORDERABLES F inal Result [facility] [address] [place] [address], * Diabetes Foot Exam (03/23/2024) [facility] Diabetes: Annual Foot Exam Abstracted Historical Provider HEALTH MAINTENANCE Final Result * Hemoglobin A1c (03/23/2024) [facility] Hemoglobin A1C 5.8 <=6.5 % Blood Venous blood specimen / Unknown Historical Provider LAB BLOOD ORDERABLES Iesha l Result * (ABNORMAL) Lipid panel (03/23/2024) [facility] LDL/HDL Ratio 4 0 - 4 Triglycerides 153(A) 0 - 150 mg/dL Cholesterol 163 0 - 200 mg/dL HDL 37(A) >=40 mg/dL LDL Cholesterol 96 0 - 100 mg/dL Blood Venous blood specimen / Unknown Historical Provider LAB BLOOD ORDERABLES Iesha l Result * Falls Risk Assessment (07/09/2023) Falls Risk Assessment Abstracted Historical Provider HEALTH MAINTENANCE Final Result * Depression Screening (07/09/2023) Depression Screening Abstracted [facility] Provider HEALTH MAINTENANCE Final Result * DXA BONE DENSITY STUDY 1+ SITS AXIAL SKEL (09/20/2021 2:45 PM EST) Anatomical Region Laterality Modality Bone Densitometr y 07/06/2021 2:33 PM EST Narrative 09/20/2021 3:43 PM EST BONE DENSITY (DEXA) ? Lumbar Spine T-score is 1.8. ?? (SD relative to 20-29 y/o adult) Z-score is 4.4. ??(SD relative to age matched peers) This is considered normal by WHO criteria. Left Hip T-score is -2.5. Z-score is -0.3. This is considered osteoporosis by WHO criteria. Lateral view of the spine demonstrates mild wedging of the T12 and L1 vertebral bodies. ??This may be developmental. ??Clinical correlation suggested. IMPRESSION: This patient is considered considered to have osteoporosis by WHO criteria. The [facility] Department of Internal Medicine recommends using National Osteoporosis Foundation (NOF) guidelines in treatment decisions related to osteoporosis. NOF guidelines suggest considering treatment for postmenopausal women and men aged 50 or older presenting with the following: History of hip or vertebral fracture. T-score = -2.5 (DXA) at the femoral neck, total hip, or spine, after appropriate evaluation to exclude secondary causes. Low bone mass (T-score between -1.0 and -2.5 at the femoral neck or spine) AND a 10-year probability of a hip fracture = 3% OR a 10-year probability of a major osteoporosis-related fracture = 20% based on the [place]-adapted WHO algorithm Please note that all treatment decisions require clinical judgment and consideration of individual patient factors, including patient preferences, co-morbidities, previous drug use, risk factors not captured in the FRAX model (e.g., frailty, falls, vitamin D deficiency, increased bone turnover, interval significant decline in bone density) and possible under- or over-estimation of fracture risk by FRAX. Optional alternative screening schedule based on paola Rincon., [facility] September 06, 2011 for patients with osteopenia (based on hip BMD T-score) is as follows: * ??advanced osteopenia (T scores -2.00 to -2.49), BMD testing every year * ??moderate osteopenia (T scores -1.50 to -1.99), BMD testing every 5 years mild osteopenia or normal BMD (T scores -1.50 and higher), BMD testing every 15 years Procedure Note Argelia Avilez MD - 08/07/2022 BONE DENSITY (DEXA) Lumbar Spine T-score is 1.8. (SD relative to 20-29 y/o adult) Z-score is 4.4. (SD relative to age matched peers) This is considered normal by WHO criteria. Left Hip T-score is -2.5. Z-score is -0.3. This is considered osteoporosis by WHO criteria. Lateral view of the spine demonstrates mild wedging of the T12 and [id number] bodies. This may be developmental. Clinical correlation suggested. IMPRESSION: This patient is considered considered to have osteoporosis by WHOcriteria. The [facility] Department of Internal Medicine recommendsusing National Osteoporosis Foundation (NOF) guidelines in treatment decisions related toosteoporosis. NOF guidelines suggest considering treatment for postmenopausal women and menaged 50 or older presenting with the following: History of hip or vertebral fracture. T-score = -2.5 (DXA) at the femoral neck, total hip, or spine, afterappropriate evaluation to exclude secondary causes. Low bone mass (T-score between -1.0 and -2.5 at the femoral neck or spine)AND a 10-year probability of a hip fracture = 3% OR a 10-year probability of a majorosteoporosis-related fracture = 20% based on the [place]-adapted WHO algorithm Please note that all treatment decisions require clinical judgment andconsideration of individual patient factors, including patient preferences, co- morbidities,previous drug use, risk factors not captured in the FRAX model (e.g., frailty, falls, vitaminD deficiency, increased bone turnover, interval significant decline in bone density) andpossible under- or over-estimation of fracture risk by FRAX. Optional alternative screening schedule based on paola Rincon., NEJMJanuary 2011 for patients with osteopenia (based on hip BMD T-score) is as follows: * advanced osteopenia (T scores -2.00 to -2.49), BMD testing every year * moderate osteopenia (T scores -1.50 to -1.99), BMD testing every 5years mild osteopenia or normal BMD (T scores -1.50 and higher), BMD testingevery 15 years Yaz ROBINS IMG DXA PROCEDURES Final Resu lt from Last 3 Months or Most Recently Relevant to Health Maintenance Insurance [employer] - [place] MEDICARE ADVANTAGE Care Teams Chief Resource Officer Relationship Specialty Start Date End Date James Virgen MD [address] [place] [address] PCP - General 12/18/23
== END 2025-01-07 14:02 | disposition home or self-care (01) ==
LOC: HO.HVS 13:46
PROVIDERS: Visit Provider Surgery Vascular Surgery
DX: I65.23 Occlusion and stenosis of bilateral carotid arteries (principal)
CPT/HCPCS: 99214; G2211

== ENCOUNTER → 2025-01-07 13:46 | Outpatient (BNVA) | payer MEDICARE, SELFPAY | PROVIDERS: Visit Provider Surgery Vascular Surgery | DX: I65.23 Occlusion and stenosis of bilateral carotid arteries (principal) | CPT/HCPCS: 99212 ==

== ENCOUNTER 2025-06-16 13:42 | Outpatient (AMB) | payer MEDICARE, SELFPAY ==
[2025-06-16 13:49] VITALS: BP 130/64; PULSE 72; BMI 29.2
--- NOTE | 2025-06-16 13:49 | A.OFFVIS_ITS ---
Vital Signs 06/16/25 13:49 Height 5 ft 3 in Weight 164 lb 14.492 oz BMI 29.2 BP 130/64 Blood Pressure Location Lt brachial Position Sitting Pulse 72 Pulse Source Monitor Intake Visit Reasons: 1 yr f/up Intake Note: 1 yr f/up Study Assistant Required: No Accompanied by: Self / Same As Patient Allergies ibuprofen (IBUPROFEN) Allergy (Mild, Verified 01/07/25 13:54) Nausea and Vomiting, Dizzy atorvastatin Allergy (Unknown, Verified 01/07/25 13:54) Diarrhea duloxetine Allergy (Unknown, Verified 01/07/25 13:54) Unknown meperidine (Demerol) Allergy (Unknown, Verified 01/07/25 13:54) Nausea and Vomiting penicillin V Allergy (Unknown, Verified 01/07/25 13:54) Does not work for her prednisone Allergy (Unknown, Verified 01/07/25 13:54) Rash Influenza Vac Split Quad Allergy (Unknown, Uncoded 10/10/23 14:19) Rash Levothroid Allergy (Unknown, Uncoded 10/10/23 14:19) chest pain, nausea, SOB MEDICATION FOR ARTHRITIS Adverse Reaction (Severe, Uncoded 10/10/23 14:19) DIZZINESS Medication List - Last Reconciled 06/16/25 by Christiano Randolph MD albuterol sulfate 90 mcg/actuation inhalation amlodipine 5 mg PO BID aspirin 81 mg PO DAILY blood pressure monitor (Blood Pressure Kit) As directed calcium carbonate 1,000 mg PO DAILY fluticasone propionate 110 mcg/actuation (Flovent HFA) 2 puffs inhalation BID hydralazine 25 mg PO BID magnesium hydroxide (Dulcolax (magnesium hydroxide)) 400 mg PO DAILY PRN metoprolol succinate ER 100 mg PO DAILY nitroglycerin 0.4 mg sublingual Q5M PRN omeprazole 20 mg PO BID rosuvastatin 40 mg PO DAILY HPI Comments Details: 79-year-old female here for follow-up She has history of coronary disease with previous circumflex PCI. She is compliant with medications. Denying any side effects from medications. She has history of carotid stenosis. She brought her home blood pressure readings and they are stable. She is taking medications regularly. No side effects from medications. 08/05/2023: She returns for follow-up. Blood pressure control is good. She is saying losartan was and 8 by her commissioned security officer. She also was changed from simvastatin to rosuvastatin 20 mg daily. She is asking for script. 02/12/2024: She he is here for follow-up. She has been doing fine. No chest pain or shortness of breath. Her home blood pressure readings are quite high 180 systolic. Blood pressure in the office currently is 148/70 manually. She has been taking medications regularly. No complaints on follow-up. 06/17/2024: She is here for follow-up. Blood pressure control is okay. She had some medication changes made by Nephrology. She is closely following them. No symptoms. 06/16/2025: Here for follow-up. Taking medications regularly. She is saying that she ran out of sublingual nitroglycerin. She is saying she rarely uses it for chest pain and is describing fairly atypical appearing chest pain episodes. [facility] Medical History Osteoarthritis of lumbar spine Hypothyroid Asthma Elevated cholesterol Anxiety CKD (chronic kidney disease), stage IV Type 2 diabetes mellitus Osteoporosis Fibromyalgia On beta [place] at home Essential hypertension Bilateral carotid artery stenosis Other and unspecified hyperlipidemia Presence of stent in left circumflex coronary artery Atherosclerotic cardiovascular disease Carotid stenosis, left Surgical History History of lumbar laminectomy Hx of cholecystectomy H/O section History of cardiac cath Family History Father No problems noted. Mother No problems noted. Social History Are you a primary laboratory animal caretaker to a significant other at home: No Do you presently have visiting nurse or other home services: Yes (Homecare Services) Alcohol intake: never Patient Tobacco Use Status: Never used Tobacco Second Hand Smoke Exposure: No Review of Systems Const Denies chills, Denies fatigue, Denies fever(s), Denies frequent falls, Denies weakness, Denies weight gain and Denies weight loss ENT Denies dizziness Card Denies chest pain, Denies leg edema, Denies lightheadedness, Denies palpitations, Denies dyspnea and Denies dyspnea on exertion Resp Denies cough, Denies dyspnea and Denies dyspnea on exertion GI Denies hematochezia Musc Denies abnormal gait, Denies muscle weakness, Denies numbness, Denies radiating pain into limb and Denies tingling Neuro Denies abnormal gait, Denies dizziness, Denies frequent falls, Denies numbness, Denies tingling and Denies weakness Endo Denies fatigue and Denies palpitations Physical Exam Vital Signs: Last Vital Signs Pulse 72 06/16/25 13:49 BP 130/64 06/16/25 13:49 BMI result Body Mass Index 29.2 GENERAL APPEARANCE: in no acute distress, pleasant. NECK: no jugular venous distention. SKIN: no suspicious lesions, warm and dry. HEART: no murmurs, regular rate and rhythm. LUNGS: clear to auscultation bilaterally. ABDOMEN: soft, nontender. EXTREMITIES: no edema. PERIPHERAL PULSES: equal. NEUROLOGIC: No gross deficits, AAO X 3 Office Procedures EKG Details: Sinus rhythm 72 beats per minute, normal axis, poor R-wave progression and can not rule out anterior infarct, QTC 418 milliseconds. [id number], Complete Assessment & Plan Assessment & Plan (1) Essential hypertension: Code(s): I10 - Essential (primary) hypertension Category: Medical (2) Atherosclerotic cardiovascular disease: Comment: Foll'd by Dr. Randolph Code(s): I25.10 - Atherosclerotic heart disease of [place] coronary artery without angina pectoris Category: Medical Plan Pleasant 79 year female who is here for follow-up. She has background hypertension coronary disease with previous circumflex stent. She has carotid stenosis and follows with vascular surgery at [facility]. She is on aspirin and rosuvastatin. Blood pressure is well controlled. Overall clinically stable and denying any symptoms on follow-up. She will see us back in 6 months. Thank you for allowing me to participate in the care of your patient. Please feel free to contact me if you have any questions. Medications: Refilled nitroglycerin do not exceed 3 doses per episode 0.4 mg sublingual Q5M PRN 30 tabs 5RF chest pain Coding Level of Care Code Est Pt Level 4 (14848) Diagnoses Essential hypertension I10 Atherosclerotic cardiovascular disease I25.10 CPT Codes EKG - CPT: 53736-[id number], Complete ([id number])
--- OUTSIDE RECORDS SUMMARY | 2025-06-16 17:28 | XMS_ITS | Clinical Summary ---
Author Organization [facility] Address [address] [place] [address] Phone Care Team Providers Care Wave Guide Assembler Name Role Phone James Virgen Primary Care Provider [phone] Allergies Active Allergy Reactions Criticality Noted Date Comments Atorvastatin Diarrhea,Other (see comments) 05/09/2018 Duloxetine 08/21/2021 Influenza Virus Vaccine 08/21/2021 Ibuprofen 08/21/2021 Levothyroxine Other (see comments) High 08/04/2009 Chest pains, nausea, diarrhea Meperidine Nausea And Vomiting 02/08/2010 Room spins Penicillin G 08/21/2021 Prednisone 08/21/2021 Medications albuterol HFA (PROVENTIL HFA;VENTOLIN HFA) 108 (90 Base) MCG/ACT inhaler 07/06/2021 Active Euthyrox 50 MCG tablet Take 50 mcg by mouth 1 (one) time each day 07/03/2021 Active omeprazole (PriLOSEC) [address] capsule Take 40 mg by mouth 1 (one) time each day 08/15/2021 Active aspirin (ST YONIS) 81 MG EC tablet Take 81 mg by mouth 1 (one) time each day Active nitroglycerin (NITROSTAT) 0.[address] 0.4 mg under the tongue every 5 (five) minutes if needed for chest pain Active fluticasone HFA (FLOVENT HFA) 110 MCG/ACT inhaler Inhale 1 puff 2 (two) times a day Active metoprolol succinate XL (TOPROL-XL) 100 MG 24 hr tablet Take 100 mg by mouth 1 (one) time each day Do not crush or chew. Active calcium carbonate (Calcium 600) 600 MG tablet Take 600 mg by mouth in the morning and 600 mg in the evening. Take with meals. Active calcitriol (Rocaltrol) 0.25 MCG capsule Take 1 capsule (0.25 mcg total) by mouth every other day 45 capsule 3 04/13/2024 Active Vitamin E 400 units tablet Take by mouth Active Fluticasone Furoate (Arnuity Ellipta) 100 MCG/ACT aerosol powder Inhale Active rosuvastatin (CRESTOR) 40 MG tablet Take 1 tablet (40 mg total) by mouth 12/14/2024 Active amLODIPine (NORVASC) 5 MG tablet Take 1 tablet (5 mg total) by mouth in the morning and 1 tablet (5 mg total) in the evening. 12/14/2024 Active hydrALAZINE 25 MG tablet TAKE ONE TABLET BY MOUTH EVERY MORNING AND 1 TABLET EVERY EVENING 180 tablet 3 04/20/2025 Active Active Problems Problem Noted Date Diagnosed Date Acute nontraumatic kidney injury 04/13/2024 Complex renal cyst 04/13/2024 Hypertensive chronic kidney disease 06/10/2023 Secondary hyperparathyroidism of renal origin Chronic kidney disease, stage 4 (severe) Stage 3b chronic kidney disease Hypokalemia Vitamin D deficiency Resolved Problems Problem Noted Date Diagnosed Date Resolved Date Hypertensive chronic kidney disease stage 3 06/10/2023 Encounters Date Type Department Care Team Description 04/26/2025 Orders Only [facility] [address] [place] [address] Agustin Peng MD Chronic kidney disease, stage 4 (severe) ([facility]); Hypertensive chronic kidney disease; Secondary hyperparathyroidism of renal origin (HCC) 04/18/2025 Refill [facility] [address] [facility] [address] [place] [address] Agustin Peng MD from Last 3 Months Family History Medical History Relation Comments Kidney disease Daughter Arthritis Mother Diabetes Mother Heart disease Mother Relation Status Comments Daughter Mother Social History Tobacco Use Types Packs/Day Years Used Date Smoking Tobacco: Never Smokeless Tobacco: Never Tobacco Cessation:Counseling Given: Not Answered Alcohol Use Standard Drinks/Week Comments Never 0 (1 standard drink = 0.6 oz pur e alcohol) Comments Unknown Sex and Gender Information Value Date Recorded Sex Assigned at Not on file Legal Sex Female 4:56 PM EST Gender Identity Not on file Sexual Orientation Not on file Last Filed Vital Signs Vital Sign Reading Time Taken Comments Blood Pressure 116/70 12/14/2024 2:16 PM EDT Pulse 71 12/14/2024 2:16 PM EDT Temperature - - Respiratory Rate - - Oxygen Saturation 96% 11/06/2021 4:00 PM EDT Inhaled Oxygen Concentration - - Weight 72 kg (158 lb 12.8 oz) 12/14/2024 2:16 PM EDT Height 160 cm (5' 3 ) 11/06/2021 4:00 PM EDT Body Mass Index 28.13 11/06/2021 4:00 PM EDT Plan of Treatment Upcoming Encounters Date Type Department Care Team (Late st Contact Info) Description 06/28/2025 2:00 PM EST Office Visit [facility] [address] [phone] Agustin Peng MD [address] [phone] Health Maintenance Due Date Last Done Comments Pneumococcal Vaccine: 50+ Years (2 of 2 - PCV) 09/22/2010 09/22/2009 Diabetes: Ophthalmology Exam 08/21/2021 Diabetes: Pedal Pulse Checked 08/21/2021 Diabetes: Sensory Foot Exam 08/21/2021 Diabetes: Visual Foot Exam 08/21/2021 Diabetes: Hemoglobin A1C 05/20/20252 025, 02/17/2025, 03/23/2024, Additional history exists Pneumococcal Vaccine: Peds (0 to 5 Years) and At-Risk Patients (6 to 49 Years) Discontinued 09/22/2009 Hepatitis B Vaccine Aged Out No longe r eligible based on patient's age to complete this topic Insurance [facility] Care Teams Wave Guide Assembler Relationship Specialty Start Date End Date James Virgen [address] [place] [address] PCP - General 08/19/23
--- OUTSIDE RECORDS SUMMARY | 2025-06-16 17:28 | XMS_ITS | Encounter Summary ---
Author Organization [facility] Address [address] [facility] [address] [place] [address] Phone Care Team Providers Care Tubing Machine Tender Name Role Phone James Virgen Primary Care Provider [phone] Encounter Details Date Type Department Care Team (Late st Contact Info) Description 10/24/2021 Refill [facility] [address] [facility] [address] [place] [address] Agustin Peng MD [address] [facility] [address] [place] [phone] Social History Tobacco Use Types Packs/Day Years Used Date Smoking Tobacco: Never Smokeless Tobacco: Never Alcohol Use Standard Drinks/Week Comments Never 0 (1 standard drink = 0.6 oz pur e alcohol) Comments Unknown Sex and Gender Information Value Date Recorded Sex Assigned at Not on file Legal Sex Female 4:56 PM EST Gender Identity Not on file Sexual Orientation Not on file documented as of this encounter Miscellaneous Notes * Telephone Encounter - Noemy Pompa [place] - 10/30/2021 3:53 PM EDT Please advise? * Telephone Encounter - Zenaida Andino - 10/24/2021 1:11 PM EST Pt called, she is having a hard time swallowing the tabs for magnesium oxide. She would like to geta new prescription for 200 mgs 2 tabs daily since the pills will be easier to swallow. Please send to [facility] in [place] Thank you documented in this encounter Plan of Treatment Upcoming Encounters Date Type Department Care Team (Late st Contact Info) Description 06/28/2025 2:00 PM EST Office Visit [facility] [address] [address] Agustin Peng MD [address] [address] documented as of this encounter Visit Diagnoses Not on filedocumented in this encounter Care Teams Tubing Machine Tender Relationship Specialty Start Date End Date James Virgen [address] [place] [address] PCP - General 08/19/23 documented as of this encounter
--- OUTSIDE RECORDS SUMMARY | 2025-06-16 17:28 | XMS_ITS ---
Author Name [facility] Organization Unknown Care Team Organization Name Specialty Phone Email Start Date End Da te [facility] Annie Gurrola Primary [facility] 06/26/2022 4
--- OUTSIDE RECORDS SUMMARY | 2025-06-16 17:28 | XMS_ITS | Clinical Summary ---
Author Organization [facility] [address] [facility] Address [address] [place] [phone] Phone Care Team Providers Care Head Athletic Trainer Name Role Phone James Virgen MD Primary Care Provider Allergies Active Allergy Reactions Criticality Noted Date Comments Atorvastatin Diarrhea 05/09/2018 Other Reaction(s): Myalgia and Joint Pain Flu Virus Vaccine Tv 2015-16 (18 Yr And Up),Recomb 08/09/2016 Refuses gets [...] by mouth 2 (two) times a day. 4 Active Autolet (OneTouch Delica Plus Lanc Dev) lancing device As directed 2 times a day 3 Active amLODIPine (NORVASC) 5 mg tablet Take 1 tablet (5 mg total) by mouth 2 (two) times a day. Active nitroglycerin (NITROSTAT) 0.[address] 1 Tab under the tongue every 5 minutes as needed for Chest pain. 9 Active aspirin 81 mg chewable tablet Chew 1 tablet (81 mg total) 1 (one) time each day. 8 Active OneTouch Ultra Test test strip Use to test blood sugar 1 times a day.Use to test blood sugar 1 times a day. 100 each 11 4 Active lancets (OneTouch Delica Plus Lancet) 33 gauge 1 Stick by Does not apply route 2 times daily. Use for checking BS 180 each 3 4 Active UNABLE TO FIND Med Name: Penetrex cream Active Arnuity Ellipta 100 mcg/actuation blister with device inhaler Inhale 1 puff by mouth 1 (one) time each day. 1 each 1 5 Active Euthyrox 50 mcg tablet TAKE ONE TABLET BY MOUTH EVERY DAY 90 tablet 1 5 Active metoprolol succinate (TOPROL-XL) 100 mg 24 hr tablet TAKE ONE TABLET BY MOUTH EVERY DAY 90 tablet 1 5 Active rosuvastatin (CRESTOR) 40 mg tablet Take 1 tablet (40 mg total) by mouth 1 (one) time each day. 90 each 1 5 Active calcitrioL (ROCALTROL) 0.25 mcg capsule Take 2 capsules (0.5 mcg total) by mouth 1 (one) time each day. 180 capsule 1 5 Active omeprazole (PriLOSEC) [address] capsule Take 1 capsule (20 mg total) by mouth 2 (two) times a day. 180 capsule 5 Active albuterol HFA (PROAIR HFA ; PROVENTIL HFA ; VENTOLIN HFA) 90 mcg/actuation inhaler INHALE 2 PUFFS EVERY 4 HOURS NEEDED FOR WHEEZING OR FOR SHORTNESS OF BREATH 8.5 g 1 5 Active Active Problems Problem Noted Date Diagnosed Date Renal cyst 04/06/2024 Type 2 diabetes mellitus wit h cataract ([facility] V24, [facility] V28) 12/20/2021 Assessment & Plan (02/17/2025 3:13 PM EDT): Osteoporosis 09/20/2021 Assessment & Plan (02/17/2025 3:13 PM EDT): Patient with history of type 2 diabetes with stage IV CKD. Hemoglobin A1c has been within goal. Type 2 diabetes primarily diet controlled. Blood pressure has been doing well and she will continue with amlodipine, Toprol, hydralazine. Continue with levothyroxine for hypothyroidism. Continue rosuvastatin as well as aspirin given history of coronary artery disease. History of carotid stenosis bilaterally. Followed by vascular surgery at [facility]. She will have repeat labs done today. Follows with nephrology for stage IV CKD. On calcitriol. Renal function has been stable. She has osteoporosis but is not interested in any specific medication treatment for it. Has spoken with endocrinology previously on this I have applied the code G2211 to this patient s visit as the primary care provider dealing with (above mentioned conditions) leading to the extensive work up, and management associated with the medical care of this patient. This patient s serious conditions and complex medical conditions also required several consultants needing management and coordination through my office. I have reviewed all information as it pertains to the management of this patient for final approval. Type II diabetes mellitus wi th renal manifestations ([facility] V24, [facility] V28) 07/06/2021 Assessment & Plan (02/17/2025 3:13 PM EDT): Type 2 diabetes mellitus wit h vascular disease ([facility] V24, [facility] V28) 07/06/2021 Assessment & Plan (02/17/2025 3:13 PM EDT): Obesity (BMI 30.0-34.9) 07/06/2021 Bilateral carotid artery stenosis 03/21/2021 Overview (06/08/2024): Dr. Coker CKD (chronic kidney disease) stage 4, GFR 15-29 ml/min ([facility] V24, [facility] V28) 06/04/2018 Assessment & Plan (02/17/2025 3:13 PM EDT): CAD (coronary artery disease) 05/20/2018 Overview (06/08/2024): s/p FERMIN in 2018 Assessment & Plan (02/17/2025 3:13 PM EDT): Anxiety 05/02/2017 Essential hypertension 12/14/2016 Assessment & Plan (02/17/2025 3:13 PM EDT): Fibromyalgia 12/14/2016 Aortic valve sclerosis 12/13/2016 Venous insufficiency of both lower extremities 0 03/17/2015 Vitamin D deficiency 12/08/2009 High cholesterol 10/18/2009 Asthma 09/22/2009 Osteoarthritis of lumbar spine 05/17/2009 Hypothyroid 01/10/2009 Assessment & Plan (02/17/2025 3:13 PM EDT): Immunizations Immunization Administration Dates Next Due H1N1 Inj Preservative [...] drink = 0.6 oz pur e alcohol) Housing Instability Answer Date Recorde d Are you worried that in the next 2 months you may not have stable housing? No 02/17/2025 Food Access & Nutrition Answer Date Rec orded Do you have access to a vari ety of food including fruits and vegetables? Yes 02/17/2025 Access to Healthcare Answer Date Record ed Within the last 3 months, ho w many times did you visit the emergency department for your medical care? 0 02/17/2025 Health Literacy Answer Date Recorded How often do you need to hav e someone help you when you read instructions, pamphlets, or other written material from your doctor or pharmacy? Never 02/17/2025 Caregiver: How often do you need to have someone help you when you read instructions, pamphlets, or other written material from your doctor or pharmacy? Not on file 02/17/2025 Financial Risk Answer Date Recorded How hard is it for you to pa y for the very basics like food, housing, medical care, and air conditioning / heating? Not very hard 02/17/2025 Transportation Answer Date Recorded Has the lack of transportati on kept you from meetings, work, or from getting things needed for daily living? No Has the lack of transportati on kept you from medical appointments or from getting medications? No 02/17/2025 Social Isolation Answer Date Recorded How often do you feel lonely or isolated from th ose around you? Never 02/17/2025 Food Risk Answer Date Recorded Within the past 12 months we worried whether our food would run out before we got money to buy more. Never true 02/17/2025 Within the past 12 months th e food we bought just didn't last and we didn't have money to get more. Never true 02/17/2025 Dependent Care Answer Date Recorded Do you need help finding or paying for care for your loved ones. For example, teacher early childhood development or elderly care for an older adult? No 02/17/2025 Education Answer Date Recorded Do you think completing more education or training, like finishing a GED, going to college, or learning a trade, would be helpful for you? No 02/17/2025 Employment and Income Answer Date Recor ded During the last four weeks, have you been actively looking for work? No 02/17/2025 Living Situation Answer Date Recorded What is your living situation? Unrecognized valu e 02/17/2025 Comments Unknown Sex and Gender Information Value Date Recorded Sex Assigned at Not on file Legal Sex Female 7:50 AM EST Gender Identity Not on file Sexual Orientation Not on file Obstetrics History Last Filed Vital Signs Vital Sign Reading Time Taken Comments Blood Pressure 127/75 02/17/2025 1:36 PM EDT Pulse 70 02/17/2025 1:36 PM EDT Temperature 36.5 C (97.7 F) 02/17/2025 1:36 PM EDT Respiratory Rate 16 02/17/2025 1:36 PM EDT Oxygen Saturation 97% 02/17/2025 1:36 PM EDT Inhaled Oxygen Concentration - - Weight 71 kg (156 lb 9.6 oz) 02/17/2025 1:36 PM EDT Height 158.8 cm (5' 2.5 ) 02/17/2025 1:36 PM EDT Body Mass Index 28.19 02/17/2025 1:36 PM EDT Plan of Treatment Upcoming Encounters Date Type Department Care Team (Late st Contact Info) Description 07/21/2025 1:15 PM EST Office Visit [facility] [address] [phone] James Virgen MD [address] [place] [address] 11/08/2025 2:00 PM EDT Office Visit General Surgery [address] [place] [phone] Cristian Ratliff MD [address] [place] [phone] 02/08/2026 2:00 PM EDT Office Visit Endocrinology [address] [phone] Brittany Pollard MD [address] [place] [address] Health Maintenance Due Date Last Done Comments Diabetes: Annual Retina Eye Exam 12/14/1955 Diabetes: Annual Foot Exam 03/23/2025 03/23/2024 Diabetes: Blood Sugar Control Test (HGBA1C) 08/20/2025 02/17/2025, 03/23/2024, 03/23/2024, Additional history exists Diabetes: Annual Urine Albumin-Creatinine Ratio (uACR) 02/17/2026 02/17/2025, 11/25/2024, 05/27/2024, Additional history exists Diabetes: Annual GFR (Glomerular Filtration Rate) 02/17/2026 02/17/2025, 11/27/2024, 11/25/2024, Additional history exists Falls Risk Assessment 02/17/2026 02/17/2025, 023 Hypertension/CHF/CAD Annual BMP Blood Test 02/17/2026 02/17/2025, 11/27/2024, 11/25/2024, Additional history exists Medicare Annual Wellness Visit 02/17/2026 02/17/2025 Social Influencers of Health Screening 02/17/2026 02/17/2025 Cholesterol Screening (Lipid Panel) 02/17/2030 02/17/2025, 03/23/2024, 03/23/2024, Additional history exists Osteoporosis Screening (Bone Density Screening) 09/20/2031 09/20/2021, 11/14/2017 DTaP,Tdap,and Td Vaccines (3 - Td or Tdap) 11/16/2031 11/15/2021, 12/30/2008 Influenza Vaccine Discontinued 09/22/2009 Pneumococcal Vaccine: 50+ Years Discontinued 09/22/2009 Depression Screening Completed 02/17/2025, 07/09/20 23 COVID-19 Vaccine Discontinued HIB Vaccines Aged Out [...] Procedure Name Priority Date/Time Associated Diagnosis Comments MICROALBUMIN CREATININE URINE RATIO Routine 02/17/2025 2:21 PM EDT Type 2 diabetes mellitus with cataract ([facility] V24, [facility] V28) Type 2 diabetes mellitus with vascular disease ([facility] V24, [facility] V28) COMPREHENSIVE METABOLIC PANEL Routine 02/17/2025 2:21 PM EDT Type 2 diabetes mellitus with cataract ([facility] V24, [facility] V28) Type 2 diabetes mellitus with vascular disease ([facility] V24, [facility] V28) HEMOGLOBIN A1C Routine 02/17/2025 2:21 PM EDT Type 2 diabetes mellitus with cataract ([facility] V24, [facility] V28) Type 2 diabetes mellitus with vascular disease ([facility] V24, [facility] V28) LIPID PANEL WITH REFLEX TO DIRECT LDL Routine 02/17/2025 2:21 PM EDT Type 2 diabetes mellitus with cataract ([facility] V24, [facility] V28) Type 2 diabetes mellitus with vascular disease ([facility] V24, [facility] V28) DIABETES FOOT EXAM Routine 03/23/2024 DEPRESSION SCREENING Routine 07/09/2023 FALLS RISK ASSESSMENT Routine 07/09/2023 DXA BONE DENSITY STUDY 1+ SITS AXIAL SKEL Routine 09/20/2021 2:45 PM EST Other specified disorders of bone density and structure, unspecified site from Last 3 Months or Most Recently Relevant to Health Maintenance Results * (ABNORMAL) Lipid panel with reflex to direct LDL (02/17/2025 2:21 PM EDT) [facility] Cholesterol 187 0 - 200 mg/dL LAB CHEMISTRY METHOD 02/17/2025 5:31 PM EDT [facility] Triglycerides 180(H) 0 - 150 mg/dL LAB CHEMISTRY METHOD 02/17/2025 5:31 PM EDT [facility] HDL 50 >=40 mg/dL LAB CHEMISTRY METHOD 02/17/2025 5:31 PM EDT [facility] LDL Calculated 101(H) 0 - 100 mg/dL LAB CHEMISTRY METHOD 02/17/2025 5:31 PM EDT [facility] VLDL Cholesterol Ke[place] 36 mg/dL LAB CHEMISTRY METHOD 02/17/2025 5:31 PM EDT [facility] Non HDL Chol. (LDL+VLDL) 137 <145 mg/dL LAB CHEMISTRY METHOD 02/17/2025 5:31 PM EDT [facility] Chol/HDL Ratio 3.7 0.0 - 4.4 LAB CHEMISTRY METHOD 02/17/2025 5:31 PM EDT [facility] Blood Venous blood specimen / Unknown Venipuncture / Unknown 02/17/2025 2:21 PM EDT 02/17/2025 2:21 PM EDT us James Virgen MD LAB BLOOD ORDERABLES F inal Result [facility] [address] [place] [address], * (ABNORMAL) Microalbumin creatinine urine ratio (02/17/2025 2:21 PM EDT) Creatinine, Urine 194.0 mg/dL LAB CHEMISTRY METHOD 02/17/2025 6:24 PM EDT [facility] Microalb, Ur 2,410.0(H ) 0.0 - 29.0 mg/L LAB CHEMISTRY METHOD 02/17/2025 6:24 PM EDT [facility] Comment:Results verified by repeat testing Microalb/Crea t Ratio 1,242(H) <30 mg/g creat LAB CHEMISTRY METHOD 02/17/2025 6:24 PM EDT [facility] Urine Urine specimen obtained by clean catch procedure / Unknown Non-blood Collection / Unknown 02/17/2025 2:21 PM EDT 02/17/2025 2:21 PM EDT us James Virgen MD LAB URINE ORDERABLES F inal Result Performing Organization Address [facility] Co de Phone Number [facility] [address] [place] [address], [place] [phone] * Hemoglobin A1c (02/17/2025 2:21 PM EDT) [facility] Hemoglobin A1C 5.8 <6.5 % LAB CHEMISTRY METHOD 02/17/2025 10:23 PM EDT [facility] Mean Bld Glu Estim. 120 mg/dL LAB CHEMISTRY METHOD 02/17/2025 10:23 PM EDT [facility] Blood Venous blood specimen / Unknown Venipuncture / Unknown 02/17/2025 2:21 PM EDT 02/17/2025 2:21 PM EDT us James Virgen MD LAB BLOOD ORDERABLES F inal Result Performing Organization Address [facility]/ZIP Co de Phone Number [facility] [address] [place] [address], [place] [phone] * (ABNORMAL) Comprehensive metabolic panel (02/17/2025 2:21 PM EDT) Pathologist [facility] Sodium 137 133 - 145 mmol/L LAB CHEMISTRY METHOD 02/17/2025 5:31 PM EDT [facility] Potassium 3.9 3.5 - 5.5 mmol/L LAB CHEMISTRY METHOD 02/17/2025 5:31 PM EDT [facility] Chloride 105 96 - 110 mmol/L LAB CHEMISTRY METHOD 02/17/2025 5:31 PM [facility] CO2 26 21 - 32 mmol/L LAB CHEMISTRY METHOD 02/17/2025 5:31 PM [facility] Anion Gap 6 3 - 11 LAB CHEMISTRY METHOD 02/17/2025 5:31 PM [facility] Glucose 118(H) 70 - 100 mg/dL LAB CHEMISTRY METHOD 02/17/2025 5:31 PM [facility] BUN 33(H) 5 - 25 mg/dL LAB CHEMISTRY METHOD 02/17/2025 5:31 PM [facility] Creatinine 3.02(H) 0.50 - 1.10 mg/dL LAB CHEMISTRY METHOD 02/17/2025 5:31 PM [facility] eGFR 15(L) >=60 mL/min/1. 73m2 LAB CHEMISTRY METHOD 02/17/2025 5:31 PM [facility] Comment:Calculation based on the Chronic Kidney Disease Epidemiology Collaboration (CKD-EPI) equation refit without adjustment for race. BUN/Creatinine Ratio 10.9 LAB CHEMISTRY METHOD 02/17/2025 5:31 PM [facility] Calcium 9.6 8.5 - 10.5 mg/dL LAB CHEMISTRY METHOD 02/17/2025 5:31 PM [facility] AST (SGOT) 17 10 - 42 unit/L LAB CHEMISTRY METHOD 02/17/2025 5:31 PM [facility] ALT (SGPT) 18 10 - 60 unit/L LAB CHEMISTRY METHOD 02/17/2025 5:31 PM [facility] Alkaline Phosphatase 56 42 - 121 unit/L LAB CHEMISTRY METHOD 02/17/2025 5:31 PM [facility] Total Protein 7.4 6.0 - 8.0 g/dL LAB CHEMISTRY METHOD 02/17/2025 5:31 PM [facility] Albumin 3.9 3.2 - 5.0 g/dL LAB CHEMISTRY METHOD 02/17/2025 5:31 PM EDT [facility] Total Bilirubin 0.7 0.0 - 1.4 mg/dL LAB CHEMISTRY METHOD 02/17/2025 5:31 PM EDT [facility] Blood Venous blood specimen / Unknown Venipuncture / Unknown 02/17/2025 2:21 PM EDT 02/17/2025 2:21 PM EDT James Virgen MD LAB BLOOD ORDERABLES F inal Result [facility] [address] [place] [address], * Diabetes Foot Exam (03/23/2024) [facility] Diabetes: Annual Foot Exam Abstracted [facility] Provider HEALTH MAINTENANCE Final Result * Falls Risk Assessment (07/09/2023) [facility] Falls Risk Assessment Abstracted [facility] Provider HEALTH MAINTENANCE Final Result * Depression Screening (07/09/2023) [facility] Depression Screening Abstracted [facility] Provider HEALTH MAINTENANCE Final Result * DXA BONE DENSITY STUDY 1+ SITS AXIAL SKEL (09/20/2021 2:45 PM EST) Anatomical Region Laterality Modality Bone Densitometr y 07/06/2021 2:33 PM EST Narrative 09/20/2021 3:43 PM EST BONE DENSITY (DEXA) Lumbar Spine T-score is 1.8. (SD relative to 20-29 y/o adult) Z-score is 4.4. (SD relative to age matched peers) This is considered normal by WHO criteria. Left Hip T-score is -2.5. Z-score is -0.3. This is considered osteoporosis by WHO criteria. Lateral view of the spine demonstrates mild wedging of the T12 and L1 vertebral bodies. This may be developmental. Clinical correlation suggested. IMPRESSION: This patient is considered considered to have osteoporosis by WHO criteria. The [facility] Department of Internal Medicine recommends using National [...] alternative screening schedule based on paola Rincon., [facility] September 06, 2011 for patients with osteopenia [...] demonstrates mild wedging of the T12 and [id number] bodies. This may be developmental. Clinical correlation suggested. IMPRESSION: This patient is considered considered to have osteoporosis by WHOcriteria. The [facility] Department of Internal Medicine recommendsusing National Osteoporosis [...] higher), BMD testingevery 15 years [facility] DXA PROCEDURES Final Resu lt from Last 3 Months or Most Recently Relevant to Health Maintenance Insurance [employer] - [place] MEDICARE ADVANTAGE Care Teams Head Athletic Trainer Relationship Specialty Start Date End Date James Virgen MD [address] [place] [phone] PCP - General 12/18/23
--- OUTSIDE RECORDS SUMMARY | 2025-06-16 17:28 | XMS_ITS | Encounter Summary ---
Author Organization [facility] Address [address] [place] [address] Phone Care Team Providers Care Manager Group Name Role Phone James Virgen Primary Care Provider [phone] Encounter Details Date Type Department Care Team (Late st Contact Info) Description 10/25/2021 Telephone [facility] [address] [place] [address] Annie Gurrola MD [address] [place] [phone] Social History Tobacco Use Types Packs/Day Years [...] encounter Miscellaneous Notes * Telephone Encounter - Agustin Peng MD - 10/26/2021 4:54 PM EST Done Please let pt know * Telephone Encounter - Merlene Nam MA - 10/26/2021 10:15 AM EST Please order * Telephone Encounter - Zenaida Andino - 10/25/2021 4:09 PM EST Pt called back, she is having a hard time swallowing the tabs for magnesium oxide. She would like to get a new prescription for 200 mgs 2 tabs daily since the pills will be easier to swallow. Please send to [facility] in [place] Thank you documented in this encounter Plan of Treatment Upcoming Encounters Date Type Department Care Team (Late st Contact Info) Description 06/28/2025 2:00 PM EST Office Visit [facility] [address] [phone] Agustin Peng MD [address] [phone] documented as of this encounter Visit Diagnoses Not on filedocumented in this encounter Care Teams Manager Group Relationship Specialty Start Date End Date James Virgen [address] [place] [phone] PCP - General 08/19/23 documented as of this encounter
== END 2025-06-16 14:10 | disposition home or self-care (01) ==
LOC: HO.HCS 13:42
PROVIDERS: PCP Internal Medicine; Visit Provider Internal Medicine Cardiovascular Disease
DX: I10 Essential (primary) hypertension (principal); I25.10 Atherosclerotic heart disease of native coronary artery without angina pectoris
CPT/HCPCS: 93010; 99214

== ENCOUNTER → 2025-06-16 13:42 | Outpatient (BNVA) | payer MEDICARE, SELFPAY | PROVIDERS: PCP Internal Medicine; Visit Provider Internal Medicine Cardiovascular Disease | DX: I25.10 Atherosclerotic heart disease of native coronary artery without angina pectoris (principal); I10 Essential (primary) hypertension; I65.22 Occlusion and stenosis of left carotid artery; Z98.61 Coronary angioplasty status | CPT/HCPCS: 93005; 99212 ==